=== PATIENT | female | born 1965 ===

== ENCOUNTER 2020-05-28 10:29 | Outpatient (REF) | payer MEDICAID, SELFPAY ==
[2020-05-28 15:15] LABS: SARS COV2 PCR INHOUSE NEGATIVE (Negative)
== END 2020-05-28 10:30 | disposition home or self-care (01) ==
LOC: HO.LAB 10:29
PROVIDERS: Visit Provider Internal Medicine
DX: Z20.822 Contact with and (suspected) exposure to COVID-19 (principal)
CPT/HCPCS: C9803; U0003

== ENCOUNTER 2020-08-19 15:00 | Outpatient (REF) | payer MEDICAID, SELFPAY ==
--- NOTE | ~2020-08-19 | MM_ITS ---
EXAMINATION: MM SCREENING DIGITAL BREAST TOMOSYNTHESIS, BILATERAL CLINICAL INFORMATION: Screening. Asymptomatic. The lifetime risk of breast cancer based on the Tyrer-Cuzick Model is 8%. COMPARISON: Mammography: 05/01/2019, 04/26/2018, 04/06/2017 TECHNIQUE: Digital breast tomosynthesis is performed in both the craniocaudal and mediolateral oblique views along with computer-aided detection (CAD). Synthesized 2D images are generated from the tomosynthesis. FINDINGS: There are scattered areas of fibroglandular density (ACR BI-RADS breast composition Category b). There are no significant masses, abnormal calcifications, or other abnormalities. Breast tissue composition borders on heterogeneously dense. Parenchymal pattern is similar to prior exams. There is no developing density. No significant changes. MM/MM tomosynthesis screening BI IMPRESSION: No mammographic evidence of malignancy. ASSESSMENT: BI-RADS 1: Negative RECOMMENDATION: Routine annual mammography screening. This patient's information was entered into a reminder system with a target due date for their next mammogram.
== END 2020-08-19 15:01 | disposition home or self-care (01) ==
LOC: HO.MAMMO 15:00
PROVIDERS: PCP Internal Medicine Geriatric Medicine; Visit Provider Internal Medicine Geriatric Medicine
DX: Z12.31 Encounter for screening mammogram for malignant neoplasm of breast (principal)
CPT/HCPCS: 77063; 77067

== ENCOUNTER 2021-08-23 13:53 | Outpatient (REF) | payer MEDICAID, SELFPAY ==
--- NOTE | ~2021-08-23 | MM_ITS ---
EXAMINATION: MM SCREENING DIGITAL BREAST TOMOSYNTHESIS, BILATERAL CLINICAL INFORMATION: Screening. Asymptomatic. The lifetime risk of breast cancer based on the Tyrer-Cuzick Model is 10%. COMPARISON: Mammography: 08/19/2020, 05/01/2019, 04/26/2018 TECHNIQUE: Digital breast tomosynthesis is performed in both the craniocaudal and mediolateral oblique views along with computer-aided detection (CAD). Synthesized 2D images are generated from the tomosynthesis. FINDINGS: There are scattered areas of fibroglandular density (ACR BI-RADS breast composition Category b). There are no significant masses, abnormal calcifications, or other abnormalities. Parenchymal pattern is similar to prior exams. The axilla and skin contours are unremarkable. MM/MM tomosynthesis screening BI IMPRESSION: No mammographic evidence of malignancy. ASSESSMENT: BI-RADS 1: Negative RECOMMENDATION: Routine annual mammography screening. This patient's information was entered into a reminder system with a target due date for their next mammogram.
== END 2021-08-23 13:54 | disposition home or self-care (01) ==
LOC: HO.MAMMO 13:53
PROVIDERS: PCP Nurse Practitioner Primary Care; Visit Provider Nurse Practitioner Primary Care
DX: Z12.31 Encounter for screening mammogram for malignant neoplasm of breast (principal)
CPT/HCPCS: 77063; 77067

== ENCOUNTER 2021-11-17 15:28 | Outpatient (REF) | payer MEDICAID, SELFPAY ==
--- NOTE | ~2021-11-17 | XR_ITS ---
EXAMINATION: XR ELBOW, RIGHT CLINICAL INFORMATION: Pain Bump on the surface of the skin COMPARISON: None TECHNIQUE: AP, lateral, and oblique views of the right elbow. FINDINGS: There is mild soft tissue swelling over the olecranon. The bones are intact. No fracture or joint effusion. Alignment is anatomic. Joint spaces are maintained. XR/XR elbow RT min 3V IMPRESSION: 1. No bony abnormality. 2. Possible mild olecranon bursitis.
== END 2021-11-17 15:29 | disposition home or self-care (01) ==
LOC: HO.XRAY 15:28
PROVIDERS: PCP Nurse Practitioner Primary Care; Visit Provider Emergency Medicine
DX: M25.521 Pain in right elbow (principal)
CPT/HCPCS: 73080

== ENCOUNTER 2022-09-27 13:39 | Outpatient (REF) | payer OTHER, SELFPAY ==
--- NOTE | ~2022-09-27 | MM_ITS ---
EXAMINATION: MM SCREENING DIGITAL BREAST TOMOSYNTHESIS, BILATERAL CLINICAL INFORMATION: Screening. Asymptomatic. The lifetime risk of breast cancer based on the Tyrer-Cuzick Model is 11.6%. COMPARISON: Mammography: This study is compared with prior exams dating back to 2019. TECHNIQUE: Digital breast tomosynthesis is performed in both the craniocaudal and mediolateral oblique views along with computer-aided detection (CAD). Synthesized 2D images are generated from the tomosynthesis. FINDINGS: There are scattered areas of fibroglandular density (ACR BI-RADS breast composition Category b). There are no significant masses, abnormal calcifications, or other abnormalities. MM/MM tomosynthesis screening BI IMPRESSION: No mammographic evidence of malignancy. ASSESSMENT: BI-RADS BI-RADS 1 - Negative RECOMMENDATION: Routine annual mammography screening. 1 year F/U This examination should not preclude the clinical evaluation of a suspicious palpable abnormality. This patient's information was entered into a reminder system with a target due date for their next mammogram.
== END 2022-09-27 13:40 | disposition home or self-care (01) ==
LOC: HO.MAMMO 13:39
PROVIDERS: PCP Nurse Practitioner Primary Care; Visit Provider Nurse Practitioner Primary Care
DX: Z12.31 Encounter for screening mammogram for malignant neoplasm of breast (principal)
CPT/HCPCS: 77063; 77067

== ENCOUNTER → 2022-09-27 13:45 | Outpatient (BNV) | payer MEDICAID, SELFPAY | PROVIDERS: PCP Nurse Practitioner Primary Care; Visit Provider Radiology Diagnostic Radiology | DX: Z12.31 Encounter for screening mammogram for malignant neoplasm of breast (principal) | CPT/HCPCS: 77063; 77067 ==

== ENCOUNTER 2023-06-23 12:58 | Outpatient (REF) | payer MEDICAID, SELFPAY ==
[2023-06-27 06:49] LABS: HPV mRNA E6/E7 rflx Not Detected (Not Detected)
== END 2023-06-23 12:59 | disposition home or self-care (01) ==
LOC: HO.LNP 12:58
PROVIDERS: Visit Provider Advanced Practice Midwife
DX: Z12.4 Encounter for screening for malignant neoplasm of cervix (principal)
CPT/HCPCS: 87624; 88142

== ENCOUNTER 2023-07-10 13:38 | Outpatient (REF) | payer MEDICAID, SELFPAY ==
--- NOTE | ~2023-07-10 | MM_ITS ---
EXAMINATION: MM DIAGNOSTIC DIGITAL BREAST TOMOSYNTHESIS, BILATERAL US BREAST LIMITED, BILATERAL MAMMOGRAPHY: CLINICAL INFORMATION: The patient presents for evaluation of a physician palpated lump in the 6:00 region of the left breast. COMPARISON: Mammography: This study is compared with prior breast imaging dating back to 2019. TECHNIQUE: Digital breast tomosynthesis is performed in both the craniocaudal and mediolateral oblique views along with computer-aided detection (CAD). Synthesized 2D images are generated from the tomosynthesis. CC and MLO spot compression of the 6:00 region of the left breast was performed. A full lateral view of the left breast was also performed. FINDINGS: There are scattered areas of fibroglandular density (ACR BI-RADS breast composition Category b). There are no significant masses, abnormal calcifications, or other abnormalities. There are no mammographic correlates with the area of palpable concern in the 6:00 region of the left breast. ULTRASOUND: CLINICAL INFORMATION: The patient presents for evaluation of a physician palpated lump in the 6:00 region of the left breast. COMPARISON: None TECHNIQUE: Targeted sonographic evaluation was performed using a high frequency linear transducer. The 7-12 o'clock area of the right breast was scanned further evaluate a right mammographic finding. The 4- 8:00 region of the left breast in the area of patient's symptomatology was also scanned. FINDINGS: RIGHT BREAST: No abnormalities of the 7-12 o'clock region of the right breast are present. This area was scanned to evaluate dense breast tissue in the upper outer quadrant. LEFT BREAST: No abnormalities of the for-8:00 region of the left breast are present. MM/MM tomosynthesis diagnostic BI IMPRESSION: No mammographic or sonographic signs of malignancy in either breast. No abnormalities in the patient's area of palpable concern in the 6:00 region of the right breast. OVERALL ASSESSMENT: Mammography: BI-RADS 1 - Negative Ultrasound: BI-RADS 1 - Negative RECOMMENDATION: 1. Patient should be managed based on the clinical impression. 2. Otherwise, routine annual screening mammography. Results were provided to the patient at time of visit by the technologist. This patient's information was entered into a reminder system with a target due date for their next mammogram.
== END 2023-07-10 13:39 | disposition home or self-care (01) ==
LOC: HO.MAMMO 13:38
PROVIDERS: PCP Advanced Practice Midwife; Visit Provider Advanced Practice Midwife
DX: N63.42 Unspecified lump in left breast, subareolar (principal)
CPT/HCPCS: 76642; 77062; 77066

== ENCOUNTER → 2023-07-10 14:00 | Outpatient (BNV) | payer MEDICAID, SELFPAY | PROVIDERS: PCP Advanced Practice Midwife; Visit Provider Radiology Diagnostic Radiology | DX: N63.25 Unspecified lump in the left breast, overlapping quadrants (principal) | CPT/HCPCS: 76642; 77062; 77066 ==

== ENCOUNTER 2023-08-15 11:06 | Outpatient (REF) | payer OTHER, SELFPAY ==
--- NOTE | ~2023-08-15 | XR_ITS ---
EXAMINATION: XR HIP, RIGHT CLINICAL INFORMATION: Atraumatic right hip pain COMPARISON: Left hip radiograph from 01/02/2019 TECHNIQUE: Single view the pelvis 2 views of the right hip FINDINGS: No acute visible fracture or dislocation. 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 Degenerative changes of the lumbosacral spine. Joint spaces and alignment are otherwise maintained. Soft tissues are unremarkable. Visualized portions of bowel are unremarkable. Pelvic phleboliths are noted. XR/XR hip RT w PEL1V IMPRESSION: 1. No acute visible fracture or dislocation. 2. 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
--- NOTE | ~2023-08-15 | US_ITS ---
EXAMINATION: US VENOUS ULTRASOUND WITH DOPPLER LOWER EXTREMITY, RIGHT CLINICAL INFORMATION: Right side pain evaluate for DVT COMPARISON: None available. TECHNIQUE: Ultrasound of the deep veins is performed from the hip to the calf with compression sonography and color and pulse Doppler assessment. Spectral analysis with color-flow imaging is performed. FINDINGS: There is normal venous compression and respiratory variation and augmented flow. The visualized common femoral vein, superficial femoral vein, profunda femoral vein, popliteal vein, and the trifurcation region shows no evidence of deep venous thrombosis. There is no significant popliteal fossa cyst. Contralateral common femoral vein is patent. If the patient's symptoms persist, followup ultrasound in 5 days 7 days might be of value to exclude proximal propagation from a non-visualized calf vein. US/US venous duplex LE RT IMPRESSION: No DVT demonstrated in the right lower extremity.
[2023-08-15 12:50] LABS: Uric Acid 2.9 mg/dL (2.4-5.7)
[2023-08-16 13:59] LABS: Lyme Abs Screen <0.90 index
== END 2023-08-15 11:07 | disposition home or self-care (01) ==
LOC: HO.US 11:06
PROVIDERS: PCP Advanced Practice Midwife; Visit Provider Emergency Medicine
DX: M79.651 Pain in right thigh (principal); M25.551 Pain in right hip
CPT/HCPCS: 36415; 73502; 84550; 86617; 86618; 93971

== ENCOUNTER 2023-08-22 09:40 | Outpatient (AMB) | payer OTHER, SELFPAY ==
--- NOTE | 2023-08-22 09:42 | MHC.OFFVIS ---
Vital Signs 08/22/23 09:53 Height 5 ft 2 in Weight 129 lb BMI 23.6 BP 129/68 Blood Pressure Location Lt brachial Position Sitting Pulse 71 Intake Visit Reasons: Sub Areolar Mass Left Breast Intake Note: Patient is seen in office for evaluation and treatment of sub areolar mass of the left breast. 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 This was noted on self examination and confirmed on physical examination. The patient denies a previous history of breast problems or breast surgery. Subsequent workup with mammogram and ultrasound was negative for any suspicious changes in either study. Her family history is significant for a maternal aunt with breast cancer. She is and denies breast-feeding her children. FOR[facility]LY [facility] Surgical History History of appendectomy Social History Alcohol intake: never Patient Tobacco Use Status: Never used Tobacco Female Reproductive History Menstrual Age of Menarche: 13 Age of menopause: 53 Total pregnancies: 3 Number of Living Children: 2 Ab spontaneous: 1 Review of Systems Const All systems reviewed & are unremarkable except as noted in HPI and below Denies chills, Denies fever(s), Denies headache(s), Denies poor appetite and Denies weakness ENT Denies headache(s) Card Denies chest pain, Denies irregular heart rhythm, Denies palpitations and Denies dyspnea Resp Denies cough, Denies excessive phlegm production and Denies dyspnea GI Denies abdominal pain, Denies bloating, Denies change in bowel habits, Denies constipation, Denies heartburn, Denies diarrhea, Denies nausea and Denies vomiting Denies urinary frequency and Denies nipple discharge Musc Denies back pain, Denies muscle weakness and Denies numbness Skin/Breast Denies breast skin changes, Denies breast pain, Reports breast mass, Denies changing lesions, Denies nipple discharge and Denies unusual bruising Neuro Denies headache(s), Denies numbness, Denies paresthesias and Denies weakness Psych Denies anxiety and Denies depression Endo Denies palpitations Neeraj/Lymph Denies lymphadenopathy Physical Exam Vital Signs: Last Vital Signs Pulse 71 08/22/23 09:53 BP 129/68 08/22/23 09:53 BMI result Body Mass Index 23.6 Const General: cooperative and no acute distress Nutritional Appearance: well nourished Orientation/consciousness: patient oriented x3 Limitations: no limitations HEENT Head: Yes normocephalic and Yes atraumatic Ears: hearing grossly normal bilaterally Chest Other: Left breast: No skin change, no nipple retraction, no nipple discharge, palpable mass located in the 04:00 o'clock location just below the areola, mobile within the tissue (see below), no enlarged lymph nodes. Right breast: No skin change, no nipple retraction, no nipple discharge, no palpable mass, no enlarged lymph nodes Chest/axillae images: 1. Palpable mass left breast Resp Effort & Inspection: normal respiratory effort, no audible wheezes, no cough and no respiratory distress Cardio Jugular venous distension: no JVD GI Inspection: Yes normal to inspection Skin Other: Warm, dry, no rash Neuro General: patient oriented x3 Extrem General: Yes no clubbing, cyanosis or edema Assessment & Plan Assessment & Plan (1) Breast mass, left: Code(s): N63.20 - Unspecified lump in the left breast, unspecified quadrant Category: Medical Qualifiers: Breast mass location: lower outer quadrant Qualified Code(s): N63.23 - Unspecified lump in the left breast, lower outer quadrant Plan 57-year-old year old female patient presenting with a palpable mass noted on self examination. Lump was not identified by mammogram or ultrasound. Examination does confirm a palpable mass measuring approximately 1 cm in the lower inner quadrant (04:00 o'clock location). We discussed observation versus excisional biopsy. I recommended an excision this is a safest option and after discussion of the procedure, risks, and alternatives, she consents to a left breast lumpectomy. Be performed as a short-stay surgery. Coding Level of Care Code New Pt Level 4 (84811) Diagnoses Mass of lower outer quadrant of left breast N63.23 Breast mass location: lower outer quadrant
[2023-08-22 09:53] VITALS: BP 129/68; PULSE 71; BMI 23.6
== END 2023-08-22 10:06 | disposition home or self-care (01) ==
PROVIDERS: PCP Advanced Practice Midwife; Visit Provider Surgery
DX: N63.23 Unspecified lump in the left breast, lower outer quadrant (principal)
CPT/HCPCS: 99204

== ENCOUNTER → 2023-08-22 09:40 | Outpatient (BNVA) | payer OTHER, SELFPAY | PROVIDERS: PCP Advanced Practice Midwife; Visit Provider Surgery | DX: N63.23 Unspecified lump in the left breast, lower outer quadrant (principal) | CPT/HCPCS: 99202 ==

== ENCOUNTER 2023-09-11 08:45 | Outpatient (AMB) | payer OTHER, SELFPAY ==
--- NOTE | 2023-09-11 09:02 | MHC.OFFVIS ---
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 Marketing Information Analyst Required: No Accompanied by: Self / Same As Patient Allergies No Known Allergies Allergy (Verified 08/22/23 09:50) Medication List - Last Reconciled 09/11/23 by Aleksandr De Leon MD albuterol sulfate 90 mcg/actuation (Ventolin HFA) 2 puffs inhalation QID PRN multivitamin 1 tab PO DAILY HPI Comments Details: Pleasant 57-year-old female who has been referred to us for cardiac murmur. She has a breast mass and is seeing surgery where a murmur was heard and she was referred to us. She is due to get excision of the breast mass next week. She does not have any medical history or family history of cardiovascular disease. She is active and does exercise 3 times a week without any exertional chest discomfort shortness of breath. Never had syncope in the past. No history of thyroid disease or anemia in the past. COUNTS INCLUDE 234 BEDS AT THE [facility] Medical History (Updated 09/11/23 @ 09:21 by Aleksandr De Leon MD) Arthritis Hip pain Asthma Murmur Surgical History H/O colonoscopy History of appendectomy Family History Maternal Aunt Breast cancer Social History Are you a primary daytime caregiver to a significant other at home: No Do you presently have visiting nurse or other home services: No Alcohol intake: never Patient Tobacco Use Status: Never used Tobacco Female Reproductive History Menstrual Age of Menarche: 13 Review of Systems Const Denies chills, Denies fatigue, Denies fever(s), Denies frequent falls, Denies weakness, Denies weight gain and Denies weight loss ENT Denies dizziness Card Denies chest pain, Denies leg edema, Denies lightheadedness, Denies palpitations, Denies dyspnea, Denies dyspnea on exertion and Denies orthopnea Resp Denies cough, Denies dyspnea and Denies dyspnea on exertion GI Denies bloating and Denies change in bowel habits Musc Denies muscle weakness, Denies numbness and Denies tingling Neuro Denies dizziness, Denies frequent falls, Denies numbness, Denies tingling and Denies weakness Endo Denies fatigue and Denies palpitations Physical Exam Vital Signs: Last Vital Signs Pulse 64 09/11/23 09:03 BP 110/70 09/11/23 09:03 BMI result Body Mass Index 23.4 GENERAL APPEARANCE: in no acute distress, pleasant. NECK: no carotid bruit, no jugular venous distention. SKIN: no suspicious lesions, warm and dry. HEART: Mid systolic grade I/V1 murmur, regular rate and rhythm. LUNGS: clear to auscultation bilaterally. ABDOMEN: soft, nontender. EXTREMITIES: no edema. PERIPHERAL PULSES: equal. NEUROLOGIC: No gross deficits, AAO X 3 Office Procedures EKG Details: Normal sinus rhythm 64 beats per minute normal axis, normal ECG, QTC 414 milliseconds. [id number], Complete Assessment & Plan Assessment & Plan (1) Murmur: Code(s): R01.1 - Cardiac murmur, unspecified Category: Medical Plan Pleasant 57 year female who is here for cardiac murmur. By exam she has an innocent murmur. Clinically, she has no symptoms. She is active and has no exertional complaints. Can proceed with breast lump excision with low risk of cardiovascular complications. Can have elective echocardiography performed in the coming weeks. Follow-up in 6 months. Thank you for allowing me to participate in the care of your patient. Please feel free to contact me if you have any questions. Orders: Orders CA echo transthoracic complete Today R01.1 - Cardiac murmur, unspecified Coding Level of Care Code New Pt Level 4 (74892) Diagnoses Murmur R01.1 CPT Codes EKG - CPT: 49446-[id number], Complete ([id number])
[2023-09-11 09:03] VITALS: BP 110/70; PULSE 64; BMI 23.4
== END 2023-09-11 09:31 | disposition home or self-care (01) ==
PROVIDERS: PCP Advanced Practice Midwife; Visit Provider Internal Medicine Cardiovascular Disease
DX: R01.1 Cardiac murmur, unspecified (principal)
CPT/HCPCS: 93010; 99204

== ENCOUNTER → 2023-09-11 08:45 | Outpatient (BNVA) | payer OTHER, SELFPAY | PROVIDERS: PCP Advanced Practice Midwife; Visit Provider Internal Medicine Cardiovascular Disease | DX: R01.1 Cardiac murmur, unspecified (principal) | CPT/HCPCS: 93005; 99202 ==

== ENCOUNTER 2023-09-18 08:06 | Day surgery (SDC) | payer OTHER, SELFPAY ==
[2023-09-08 11:02] VITALS: BMI 22.9
[2023-09-18 08:24] VITALS: BP 129/65; PULSE 61; RESP 16; TEMP 36.1; O2SAT 99
[2023-09-18] MEDS: Lactated Ringers 1,000 ML 100 ML IVCONT (08:25)
--- NOTE | 2023-09-18 09:27 | HO.ANESPROP2 ---
[facility] Active Problems Active Problems: All Active Problems Murmur (Acute) Breast mass, left (Acute) Past Medical History Medical History Arthritis Hip pain Asthma Murmur Functional capacity: independent ambulation Patient : No Family History Family History Maternal Aunt Breast cancer Family history of problems with anesthesia: No Surgical History Surgical History H/O colonoscopy History of appendectomy History of Problems with Anesthesia: No Social History Social History Are you a primary childcare center director to a significant other at home: No Do you presently have visiting nurse or other home services: No Alcohol intake: never Patient Tobacco Use Status: Never used Tobacco Use of substances other than those prescribed or required for medical reasons: No Have you been hit, kicked, punched, or otherwise hurt by someone within the past year? If so, by whom?: No Are you DNR?: No Advance Directives: No Advance Directives Information Provided: Yes Advance Directives on File: No Recently lost weight without trying: No Nutrition Risks: No Nutritional Risk Patient : No : No Poor oral hygiene: No Meds Allergies Allergy/AdvReac Type Severity Reaction Status Date / Time No Known Allergies Allergy Verified 09/18/23 08:16 Active Medications: Current Medications Lactated Ringer's (Lr) 1,000 mls @ 100 mls/hr IVCONT .Q10H MONICA Last Admin: 09/18/23 08:25 Dose: 100 mls/hr Home Medications ?Medication ?Instructions ?Recorded ?Confirmed ?Last Taken ?Type albuterol sulfate 90 mcg/actuation 2 puff inhalation QID PRN 09/08/23 09/11/23 Unknown History aerosol inhaler (Ventolin HFA) Shortness Of Breath Or Wheezing multivitamin 1 tab PO DAILY 09/08/23 09/11/23 Unknown History Exam Height,Weight and Vital Signs: Height 5 ft 2 in Weight 56.699 kg Last Vital Signs Temp 97.0 F 09/18/23 08:24 Pulse 61 09/18/23 08:24 Resp 16 09/18/23 08:24 BP 129/65 09/18/23 08:24 Pulse Ox 99 09/18/23 08:24 O2 Del Method Room Air 09/18/23 08:24 Airway Mallampati Class: II TM Dist: >3cm Neck ROM: Full Heart: RRR Lungs: CTA Assessment and Plan Assessment Anesthesia Assessment: Anesthesia Plan Discussed Final Anesthetic Review Family History of Problems with Anesthesia: No History of Problems with Anesthesia: No NPO: Yes ASA Class: II Final Preanesthetic Review: Meds/Allgs Chart Reviewed, Consent Obtained/Reviewed and Anes Risks/Benef Reviewed Patient Risk: Low Procedure Risk: Low Anesthetic Plan Anesthetic Plan: GA Disposition: Standard PACU
--- NOTE | 2023-09-18 09:36 | MHC.SHP ---
Pre-Procedural Eval Section A - 24 Hr Update-Section A only Date of Service: 09/18/23 The patient is an INPATIENT: No Changes since office visit: Yes Patient answered all questions; No Cold of Flu in the past 2 weeks, No New Medical Problems and No Changes in Medication The patient has been examined within 24 hours of the surgical procedure. The History & Physical has been completed within 30 days and I have reviewed it.: Yes Section B - Complete if H&P > 30 days Chief Complaint: Unspecified lump in the left breast, lower outer q Allergies: Allergies Allergy/AdvReac Type Severity Reaction Status Date / Time No Known Allergies Allergy Verified 09/18/23 08:16 Plan Diagnosis/Plan: Unchanged I have reviewed the history and physical and performed a pertinent physical examination on my patient. No changes have occurred unless specified. Time Spent With Patient Time: Total time managing care of this patient today ____ minutes.
--- NOTE | 2023-09-18 10:44 | W.PM.OPN ---
Operative Note Operative Note Date of Service: 09/18/23 Narrative: Preoperative diagnosis: Left breast lump Postoperative diagnosis: Left breast lump Procedure: Left breast lumpectomy Surgeon: Rashawn Flores MD Casing Material Weigher: May Lawrence PA-C Anesthesia: General LMA Indications for procedure: 58-year-old female patient presenting with a palpable lump in the left breast at the 05:00 o'clock location just below the nipple-areolar complex. Workup with mammogram and ultrasound were negative for any suspicious findings. She presents today for excision of the palpable lump. Operative findings: 1.5 cm palpable lump of the left breast Specimen: Left breast lump Estimated blood loss: 2 cc Complications: None Procedure details: Patient was brought to the OR and placed in a supine position. After administering general anesthesia the patient's left breast was prepped with ChloraPrep and draped in a sterile fashion. A surgical time-out was called the consent confirmed. Patient received preoperative antibiotics and Venodyne boots were in place. Local anesthesia consisting of 0.5% Sensorcaine was then infiltrated in a curvilinear fashion around the areola. A curvilinear incision was then made with a scalpel from the 7-5 o'clock location and carried out through subcutaneous tissue. Superior and inferior skin flaps were then created. Allis clamp was then used to grasp the palpable mass. This was then excised using electrocautery. The specimen was sent to pathology for further examination. Wounds were then checked for hemostasis with the electrocautery. Wounds were then irrigated with saline solution and suctioned dry. Deep breast tissue and dermis were then reapproximated using interrupted 3-0 Polysorb sutures. Skin was closed using a running subcuticular 4-0 Polysorb suture. Steri-Strips, 2 x 2 gauze and Tegaderm were then applied. The patient tolerated the procedure well. Sponge, instrument, and needle counts reported as correct. The patient was transferred to PACU in stable condition.
[2023-09-18 11:00] VITALS: BP 111/62; PULSE 57; RESP 16; TEMP 36.1; O2SAT 99
[2023-09-18 11:05] VITALS: BP 120/66; PULSE 55; RESP 16; O2SAT 98
[2023-09-18 11:10] VITALS: BP 130/67; PULSE 52; RESP 16; O2SAT 98
[2023-09-18 11:15] VITALS: BP 129/65; PULSE 54; RESP 16; O2SAT 99
[2023-09-18 11:30] VITALS: BP 134/56; PULSE 56; RESP 16; TEMP 36.3; O2SAT 99
--- NOTE | 2023-09-18 17:39 | HO.POSTANES ---
Post Anesthesia Evaluation Post Anesthesia Evaluation Date of Service: 09/18/23 Vital Signs: Vital Signs Temp Pulse Resp BP Pulse Ox O2 Del Method 09/18/23 11:30 97.3 F 56 16 134/56 L 99 Room Air 09/18/23 11:15 54 16 129/65 99 Room Air 09/18/23 11:10 52 16 130/67 98 Room Air 09/18/23 11:05 55 16 120/66 98 Room Air 09/18/23 11:00 97 F 57 16 111/62 99 Room Air 09/18/23 08:24 97.0 F 61 16 129/65 99 Room Air Anesthesia: General LMA Mental Status: Awake Pain Control: Satisfactory Nausea/Vomiting: None Hydration: Adequate Anesthesia-Related Issues: No Anes. Related Issues
== END 2023-09-18 12:31 | disposition home or self-care (01) ==
PROVIDERS: PCP Advanced Practice Midwife; Visit Provider Surgery
PROC: (CPT 19301; principal; 2023-09-18 10:20)
DX: N63.23 Unspecified lump in the left breast, lower outer quadrant (principal); N60.82 Other benign mammary dysplasias of left breast; N60.22 Fibroadenosis of left breast; R01.1 Cardiac murmur, unspecified; J45.909 Unspecified asthma, uncomplicated; M19.90 Unspecified osteoarthritis, unspecified site; Z79.899 Other long term (current) drug therapy
CPT/HCPCS: 19301; 88305; 88307; J0690; J1100; J2250; J2405; J2704; J2795; J3010

== ENCOUNTER → 2023-09-18 08:06 | Outpatient (BNV) | payer OTHER, SELFPAY | PROVIDERS: PCP Advanced Practice Midwife; Visit Provider Surgery | DX: N63.23 Unspecified lump in the left breast, lower outer quadrant (principal) | CPT/HCPCS: 19301 ==

== ENCOUNTER 2023-09-21 14:48 | Outpatient (AMB) | payer OTHER, SELFPAY ==
--- NOTE | 2023-09-21 15:00 | MHC.OFFVIS ---
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 Patient reports her pain has been present for about 2 months. Denies injury. She was seen by her PCP who ordered xrays and referred to orthopedics. Currently her pain has improved however she continues to pain that fluctuates in intensity. States with certain movements of leg her pain will radiate down her leg. No previous tx. Finds very little relief with ibuprofen and topical cream. 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 She states that she has been experiencing pain for almost two months. She denies injury. She was seen by her PCP who ordered x-rays and referred to orthopedics. She claims that currently her pain has improved, however, she continues to have pain that changes in intensity. She states that certain movements makes her leg pain worse and that radiates down her leg. She denies any previous treatment. She finds mild relief with ibuprofen and topical cream. She denies receiving any physical therapy. 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 Female Reproductive History Menstrual Age of Menarche: 13 Review of Systems Const All systems reviewed & are unremarkable except as noted in HPI and below Physical Exam Vital Signs: BMI result Body Mass Index 22.9 Const General: cooperative, healthy appearing, comfortable and no acute distress Orientation/consciousness: patient oriented x3 Neck Neck: Yes normal visual inspection and Yes no JVD Chest Chest palpation & inspection: normal inspection of the chest Resp Effort & Inspection: normal respiratory effort Auscultation: clear to auscultation bilaterally, crackles (no), rales (no), rhonchi (no) and wheezes (no) Cardio Jugular venous distension: no JVD Rate: regular rate Rhythm: regular rhythm Heart sounds: S1 normal heart sound present, S2 normal heart sound present, Murmur heart sound present (no) and Rub heart sound present (no) Peripheral pulses: Peripheral pulses 2+ throughout Neuro General: patient oriented x3 Extrem Other: Right hip: Normal to inspection, ambulates with a slight limp. Has mild discomfort with internal and extension rotation of hip. No significant stiffness. Mild discomfort with hip flexion against resistance. NVI. General: Yes normal to inspection, Yes no pedal edema and Yes no calf tenderness Psych Appearance: grossly normal Mental Status: mental status grossly normal Speech and movement: Normal speech and movement present Results Reviewed Results Reviewed: XR hip RT w PEL1V IMPRESSION: 1. No acute visible fracture or dislocation. 2. 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 Assessment & Plan Assessment & Plan (1) Tendonitis of right hip flexor: Code(s): M76.891 - Other specified enthesopathies of right lower limb, excluding foot Category: Medical Plan We discussed options which include PT, NSAIDs and injections. The patient will defer on the injection today and proceed with PT and NSAIDs. If symptoms persist, she will contact me for an injection, otherwise, PRN. Orders: Orders PT Evaluation and Treatment 09/21/23 M76.891 - Other specified enthesopathies of right lower limb, excluding foot Medications: New celecoxib (Celebrex) 200 mg PO BID 60 caps 3RF 30 days Patient Instructions: Scribed for Svitlana Mendoza PA-C, by fernando Moore scribe, on 09/21/2023 at 3:00 PM EST. I, Svitlana Mendoza PA-C, have personally reviewed and agree with the information entered by the scribe. Coding Level of Care Code New Pt Level 3 (30490) Diagnoses Tendonitis of right hip flexor M76.891
[2023-09-21 15:06] VITALS: BMI 22.9
== END 2023-09-21 16:08 | disposition home or self-care (01) ==
PROVIDERS: PCP Advanced Practice Midwife; Visit Provider Physician Assistant
DX: M76.891 Other specified enthesopathies of right lower limb, excluding foot (principal)
CPT/HCPCS: 99204

== ENCOUNTER → 2023-09-21 14:48 | Outpatient (BNVA) | payer OTHER, SELFPAY | PROVIDERS: PCP Advanced Practice Midwife; Visit Provider Physician Assistant | DX: M76.891 Other specified enthesopathies of right lower limb, excluding foot (principal) | CPT/HCPCS: 99202 ==

== ENCOUNTER → 2023-09-25 13:49 | Outpatient (REF) | payer OTHER, SELFPAY ==
--- NOTE | 2023-09-25 13:52 | CA_ITS ---
Transthoracic Echocardiogram Patient (Last, First, Middle): Michela Leger, Gender: Female Date of : 1965 Age: 58 Procedure Date: 09/25/2023 Procedure Type: Transthoracic Echocardiogram Location: OP Height: 157.48 cm Weight: 56.7 kg BSA: 1.57 m2 Heart Rate: bpm BP: 120 / 80 mmHg Tire Worker: NAA Referring MD: Aleksandr De Leon MD Symptoms: R01.1 - Cardiac murmur, unspecified Study Quality: Fair Conclusions: - Normal left ventricular size, thickness, systolic function, and wall motion. The visually estimated ejection fraction is between 55-60%. Diastolic function is normal for age. Normal global longitudinal strain. - Normal right ventricular cavity size and systolic function. Findings Left Ventricle Normal left ventricular size, thickness, systolic function, and wall motion. The visually estimated ejection fraction is between 55-60%. Diastolic function is normal for age. Normal global longitudinal strain. Right Ventricle Normal right ventricular cavity size and systolic function. Atria The left atrium is likely dilated. The right atrium is normal in size. Aortic Valve Normal aortic valve structure and function. There is no aortic valve stenosis. There is no aortic valve regurgitation. Mitral Valve Normal mitral valve structure and function. There is trace mitral valve regurgitation. There is no mitral valve stenosis. Pulmonic Valve The pulmonic valve is normal. There is trace pulmonic valve regurgitation. Tricuspid Valve Normal tricuspid valve structure. There is trace tricuspid valve regurgitation. Normal right atrial pressure. There is no evidence of pulmonary hypertension. Great Vessels All visible segments of the aorta are normal in size. The visualized portions of the pulmonary artery and branches are normal. Venous The inferior vena cava is normal in size and collapses greater than 50% with inspiration. Pericardium/Pleural There is no evidence of pericardial effusion. Prior Study Comparison No prior study available for comparison. Measurements 2D Linear Measurements IVSd: 0.63 0.6-0.9/0.6-1.0 cm LVIDd: 4.34 3.9-5.3/4.2-5.9 cm LVIDd Index: 2.76 2.4-3.2/2.2-3.1 cm/m2 LVIDs: 3.04 2.0-3.6 cm LVPWd: 0.66 0.7-1.1 cm LA Diam: 2.90 2.7-3.8/3.0-4.0 cm LAIDs Index: 1.85 1.5-2.3 cm/m2 LV Mass: 100.77 67-162/88-224 g LV Mass Index: 64.19 43-95/49-115 g/m2 LVOT Diam: 1.90 3.0+(-)1.3 cm 2D Systolic Function EF 4C: 61.10 >55% EF 2C: 66.70 >55% EF BiP: 64.00 >55% Mitral Valve MV Pk E: 0.87 MV PK A: 0.72 MV Decel Time: 224.00 E/A: 1.20 E'Lateral: 11.00 E'Medial: 7.94 E/E' Med: 11.00 E/E' Lat: 7.90 PHT: 66.00 MVA PHT: 3.33 Decel Lehigh: 3.90 Aortic Valve AoV Pk Cole: 1.68 AoV Mn Cole: 1.09 AoV VTI: 0.42 AoV Pk Grad: 11.00 Aov Mn Grad: 6.00 BRIT Cont.VTI: 1.89 LVOT LVOT Pk Cole: 1.12 LVOT Mn Cole: 0.77 LVOT VTI: 0.28 LVOT Pk Grad: 5.00 LVOT Mn Grad: 3.00 LVOT Diam: 1.90 LVOT Area: 2.84 Diastolic Function MV Pk E: 0.87 MV Pk A: 0.72 E/A: 1.20 E'Medial: 7.94 E/E' Med: 11.00 E' Laterial: 11.00 E/E' Lat: 7.90 Right Ventricle TAPSE (mm): 25.70 TVS' Cole: 11.40 Tricuspid Valve TR Pk Cole: 2.31 TR Pk Grad: 21.00 RA Press: 8.00 RVSP: 29.00 Great Vessels Aorta Sinus of Valsalva: 3.07 2.0-3.5 cm Ao Asc: 2.60 2.1-3.4 cm Ao Arch: 2.70 Updated in Other Vendor System with Status of Final Aleksandr De Leon MD electronically signed on 09/26/2023 2:29:40 PM with status of Final
== END ==
LOC: HO.CARD 13:49
PROVIDERS: PCP Advanced Practice Midwife; Visit Provider Emergency Medicine
DX: R01.1 Cardiac murmur, unspecified (principal)
CPT/HCPCS: 93306

== ENCOUNTER → 2023-09-25 13:52 | Outpatient (BNV) | payer OTHER, SELFPAY | PROVIDERS: PCP Advanced Practice Midwife; Visit Provider Internal Medicine Cardiovascular Disease | DX: R01.1 Cardiac murmur, unspecified (principal) | CPT/HCPCS: 93306; 93356 ==

== ENCOUNTER 2023-09-28 12:35 | Outpatient (AMB) | payer OTHER, SELFPAY ==
--- NOTE | 2023-09-28 12:54 | MHC.OFFVIS ---
Vital Signs 09/28/23 12:55 Height 5 ft 2 in Weight 128 lb 11.999 oz BMI 23.5 BP 130/60 Blood Pressure Location Lt brachial Position Sitting Pulse 60 Intake Visit Reasons: S/P Left breast lumpectomy Intake Note: Patient is seen in office for post op assessment post left breast lumpectomy. Pt c/o: no concerns or changes, denies any signs of infection Op:09/18/23 Video Control Operator Required: No Accompanied by: Grand Child Allergies No Known Allergies Allergy (Verified 09/28/23 12:55) Medication List - Last Reconciled 09/28/23 by Rashawn Flores MD albuterol sulfate 90 mcg/actuation (Ventolin HFA) 2 puffs inhalation QID PRN celecoxib (Celebrex) 200 mg PO BID 30 days multivitamin 1 tab PO DAILY HPI Comments Details: 58-year-old female patient returning 1 week following excision of a left breast lump on 09/18/2023. She tolerated the procedure well and denies any ongoing breast symptoms. She reports the Steri-Strips are still intact. Pathology revealed benign breast tissue with stromal fibrosis, fibrocystic changes, apocrine metaplasia but no atypia or malignancy identified. 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 Assessment & Plan Assessment & Plan (1) Breast mass, left: Code(s): N63.20 - Unspecified lump in the left breast, unspecified quadrant Category: Medical Qualifiers: Breast mass location: lower outer quadrant Qualified Code(s): N63.23 - Unspecified lump in the left breast, lower outer quadrant Plan 58-year-old female patient status post left breast lumpectomy for palpable left breast mass. Subsequent pathology revealed benign breast tissue with no evidence of atypia or malignancy. Patient was informed of the pathology results. She tolerated the procedure well and her wounds are healing appropriately. She should follow up as needed. Coding Level of Care Code Global (72169) Diagnoses Mass of lower outer quadrant of left breast N63.23 Breast mass location: lower outer quadrant
[2023-09-28 12:55] VITALS: BP 130/60; PULSE 60; BMI 23.5
== END 2023-09-28 12:59 | disposition home or self-care (01) ==
PROVIDERS: PCP Advanced Practice Midwife; Visit Provider Surgery
DX: N63.23 Unspecified lump in the left breast, lower outer quadrant (principal)
CPT/HCPCS: 99024

== ENCOUNTER → 2023-09-28 12:35 | Outpatient (BNVA) | payer OTHER, SELFPAY | PROVIDERS: PCP Advanced Practice Midwife; Visit Provider Surgery | DX: N63.23 Unspecified lump in the left breast, lower outer quadrant (principal); N60.32 Fibrosclerosis of left breast; N60.82 Other benign mammary dysplasias of left breast | CPT/HCPCS: 99212 ==

== ENCOUNTER 2023-12-06 12:29 | Outpatient (REF) | payer OTHER, SELFPAY | END 2023-12-06 12:30 | disposition home or self-care (01) | LOC: HO.MAMMO 12:29 | PROVIDERS: PCP Nurse Practitioner Primary Care; Visit Provider Nurse Practitioner Primary Care | DX: Z13.89 Encounter for screening for other disorder (principal) ==

== ENCOUNTER 2024-05-29 09:19 | Outpatient (AMB) | payer OTHER, SELFPAY ==
--- NOTE | 2024-05-29 09:22 | A.OFFVIS_ITS ---
Vital Signs 05/29/24 09:24 Height 5 ft 2 in Weight 136 lb 3.931 oz BMI 24.9 BP 130/62 Blood Pressure Location Lt brachial Position Sitting Pulse 60 Pulse Source Pulse Oximeter Intake Visit Reasons: 6 mth f/up Intake Note: 6 mth f/up Underground Utility Locator Required: No Accompanied by: Self / Same As Patient Allergies No Known Allergies Allergy (Verified 09/28/23 12:55) Medication List - Last Reconciled 05/29/24 by Aleksandr De Leon MD albuterol sulfate 90 mcg/actuation (Ventolin HFA) 2 puffs inhalation QID PRN celecoxib (Celebrex) 200 mg PO BID 30 days multivitamin 1 tab PO DAILY HPI Comments Details: Pleasant 58-year-old female who has been referred to us for cardiac murmur. She has a breast mass and is seeing surgery where a murmur was heard and she was referred to us. She is due to get excision of the breast mass next week. She does not have any medical history or family history of cardiovascular disease. She is active and does exercise 3 times a week without any exertional chest discomfort shortness of breath. Never had syncope in the past. No history of thyroid disease or anemia in the past. 05/29/2024: She is here for follow-up she underwent breast lumpectomy which was a benign mass. She is denying any symptoms. Echocardiography previously was normal. 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 Female Reproductive History Menstrual Age of Menarche: 13 Review of Systems Const Denies chills, Denies fatigue, Denies fever(s), Denies frequent falls, Denies weakness, Denies weight gain and Denies weight loss ENT Denies dizziness Card Denies chest pain, Denies leg edema, Denies lightheadedness, Denies palpitations, Denies dyspnea and Denies dyspnea on exertion Resp Denies cough, Denies dyspnea and Denies dyspnea on exertion GI Denies hematochezia Musc Denies abnormal gait, Denies muscle weakness, Denies numbness, Denies radiating pain into limb and Denies tingling Neuro Denies abnormal gait, Denies dizziness, Denies frequent falls, Denies numbness, Denies tingling and Denies weakness Endo Denies fatigue and Denies palpitations Physical Exam Vital Signs: Last Vital Signs Pulse 60 05/29/24 09:24 BP 130/62 05/29/24 09:24 BMI result Body Mass Index 24.9 GENERAL APPEARANCE: in no acute distress, pleasant. NECK: no carotid bruit, no jugular venous distention. SKIN: no suspicious lesions, warm and dry. HEART: Mid systolic grade I/V1 murmur, regular rate and rhythm. LUNGS: clear to auscultation bilaterally. ABDOMEN: soft, nontender. EXTREMITIES: no edema. PERIPHERAL PULSES: equal. NEUROLOGIC: No gross deficits, AAO X 3 Assessment & Plan Assessment & Plan (1) Murmur: Code(s): R01.1 - Cardiac murmur, unspecified Category: Medical Plan Pleasant 58-year-old female who is here for cardiac murmur. By exam she has an innocent murmur. Clinically, she has no symptoms. She is active and has no exertional complaints. Echocardiography has confirmed that she does not have any significant valvular pathology. She has no symptoms currently. I have advised her to see us as needed from here onwards. Thank you for allowing me to participate in the care of your patient. Please feel free to contact me if you have any questions. Coding Level of Care Code Est Pt Level 3 (72538) Diagnoses Murmur R01.1
[2024-05-29 09:24] VITALS: BP 130/62; PULSE 60; BMI 24.9
--- OUTSIDE RECORDS SUMMARY | 2024-05-29 10:20 | XMS_ITS | Clinical Summary ---
Author Organization [facility] it Address [address] [place] [address] Care Team Providers Care Pcb Designer Name Role Phone Eden Barreto MD Primary Care Provider [phone] Surgical History Surgery Date Site/Laterality Comments TUBAL LIGATION PROCEDURE: HISTORICAL TUBAL LIGATION APPENDECTOMY 11/2019 PROCEDURE: HISTORICAL APPENDECTOMY Medical History Medical History Date Comments Tumors of body of uterus, an tepartum condition or complication 12/02/2004 DX:Tumors of body of uterus, antepartum condition or complication Family History Medical History Relation Name Comments Breast cancer Aunt 1 mother side Diabetes Aunt 1 mother side Hyperlipidemia Aunt 2 Hypertension Aunt 3 Diabetes Father Hypertension Father Diabetes Mother Hypertension Mother Relation Name Status Comments Aunt 1 mother side Alive Aunt 2 Aunt 3 Father Alive Mother Alive Social History Tobacco Use Types Packs/Day Years Used Date Smoking Tobacco: Never Smokeless Tobacco: Never Alcohol Use Standard Drinks/Week Comments No 0 (1 standard drink = 0.6 oz pur e alcohol) Comments Unknown Sex and Gender Information Value Date Recorded Sex Assigned at Not on file Legal Sex Female 12:47 PM EST Gender Identity Not on file Sexual Orientation Not on file Obstetrics History Last Filed Vital Signs Vital Sign Reading Time Taken Comments Blood Pressure - - Pulse - - Temperature - - Respiratory Rate - - Oxygen Saturation - - Inhaled Oxygen Concentration - - Weight 56.7 kg (125 lb) 04/24/2023 3:13 PM EST Height 157.5 cm (5' 2 ) 04/24/2023 3:13 PM EST Body Mass Index 22.86 04/24/2023 3:13 PM EST Plan of Treatment Health Maintenance Due Date Last Done Comments Breast Cancer Screening 1965 DTaP,Tdap,and Td Vaccines (1 - Tdap) 09/14/1982 Pneumococcal Vaccine: 50+ Ye ars (1 of 1 - PCV) 09/14/2013 Zoster Vaccines (1 of 2) 09/14/2013 Cervical Cancer Screening: P ap Smear 11/21/2021 11/21/2018 Colorectal Cancer Screening: Colonoscopy 01/25/2022 Depression Screening 01/25/2022 HIV Screening 01/25/2022 Hepatitis C Screening 01/25/2022 Social Influencers of Health Screening 01/25/2022 COVID-19 Vaccine ( - 2023-2 5 season) 2023 Influenza Vaccine (Season Ended) 2024 RSV Immunization Adult Patie nts (1 - 1-dose 75+ series) 09/14/2038 HIB Vaccines Aged Out No longer eligi ble based on patient's age to complete this topic HPV Vaccines Aged Out No longer eligi ble based on patient's age to complete this topic Hepatitis A Vaccines Aged Out No long er eligible based on patient's age to complete this topic Hepatitis B Vaccines Aged Out No long er eligible based on patient's age to complete this topic IPV Vaccines Aged Out No longer eligi ble based on patient's age to complete this topic MMR Vaccines Aged Out No longer eligi ble based on patient's age to complete this topic Meningococcal ACWY Vaccine Aged Out N o longer eligible based on patient's age to complete this topic Meningococcal B Vacine Aged Out No lo nger eligible based on patient's age to complete this topic Pneumococcal Vaccine: Pediat rics (0 to 5 Years) and At-Risk Patients (6 to 64 Years) Aged Out No longer eligi ble based on patient's age to complete this topic RSV Immunization Patients Un sree 20 months Aged Out No longer eligible b ased on patient's age to complete this topic Varicella Vaccines Aged Out No longer eligible based on patient's age to complete this topic Procedures Procedure Name Priority Date/Time Associated Diagnosis Comments PAP SMEAR Routine 11/21/2018 from Last 3 Months or Most Recently Relevant to Health Maintenance Results * Pap smear (11/21/2018) 11/21/2018 Narrative HISTORICAL TESTING LAB RESULTING AGENCY - 11/26/2018 4:00 PM EDT [id number] THINPREP PAP, IMAGED: NEGATIVE FOR SQUAMOUS INTRAEPITHELIAL LESION AND MALIGNANCY . BEVERLY IS PRESENT. HYPERKERATOSIS IS PRESENT. ALEN REAL , CT(ASCP) (CASE ELECTRONICALLY SIGNED 11 26 2018) RESULT OF APTIMA HIGH RISK HPV ASSAY: HIGH RISK HPV: ??NEGATIVE (SEROTYPES 16,18,31,33,35,39,45,51,52,56,58,59,66,68) COMPLETED ON 2018-11-23 ADEQUACY: SATISFACTORY ENDOCERVICAL/TRANSFORMATION ZONE COMPONENT ABSENT. SOURCE: THINPREP PAP HPV ANY DX: ??REFLEX 16 AND 18, CERVICAL, IMAGED CLINICAL INFORMATION: HPV ANY DIAGNOSIS. Z12.4, Z01.419, JOSE-MENOPAUSE, PAP HX: 04/2017 ASCUS, UNKNOWN HPV, LMP 03/02/18 May [facility] CYTOLOGY ORDERABLES Final Result HISTORICAL TESTING LAB RESULTING AGENCY from Last 3 Months or Most Recently Relevant to Health Maintenance Care Teams Pcb Designer Relationship Specialty Start Date End Date Eden Barreto MD [address] [place] [id number] PCP - General 02/14/23
--- OUTSIDE RECORDS SUMMARY | 2024-05-29 10:20 | XMS_ITS | Clinical Summary ---
Author Organization [employer] Address [address] [facility] [address] [place] [address] Care Team Providers Care Horticultural Therapist Name Role Phone Radha Leiva WILLIAM Primary Care Provider [phone] Allergies No known active allergies Medications albuterol (Ventolin HFA) 108 (90 Base) MCG/ACT inhaler Inhale 2 puffs every 4 (four) hours if needed for wheezing or shortness of breath. 18 g 3 4 Active albuterol (2.5 MG/3ML) 0.083% nebulizer solution Take 3 mL by nebulization every 6 (six) hours if needed for wheezing. 75 mL 3 4 Active Spacer/Aero-Hol ding Chambers (OptiChamber Cate) misc 1 each every 4 (four) hours if needed (asthma). 1 each 4 Active Blood Pressure kit 1 each 2 times daily. 1 kit 4 07/25/19 25 Active lidocaine (Lidoderm) 5 % patch Apply 1 patch topically Once per day. Remove & discard patch within 12 hours or as directed by MD. May use 2 patches at once. 60 patch 2 4 08/15/19 25 Active Diclofenac Sodium 1 % gel Apply 4 g topically if needed in the morning, at noon, in the evening, and at bedtime (pain). 100 g 1 4 Active fluticasone (Flonase) 50 MCG/ACT nasal spray Administer 2 sprays into each nostril if needed each day for rhinitis. Shake gently. Before first use, prime pump. After use, clean tip and replace cap. 16 g 1 5 03/28/19 26 Active guaiFENesin (Mucinex) 600 MG 12 hr tablet Take 2 tablets (1,200 mg) by mouth if needed in the morning and at bedtime for cough or congestion. Do not crush, chew, or split. 30 tablet 5 03/28/19 26 Active cetirizine (ZyrTEC ALLERGY) 10 MG tablet Take 1 tablet (10 mg) by mouth if needed each day for rhinitis. 30 tablet 1 5 03/28/19 26 Active celecoxib (CeleBREX) 200 MG capsuleIndicati ons:Right hip pain 1 tab BID as needed for pain 60 capsule 2 5 Active Active Problems Problem Noted Date Diagnosed Date Heart murmur 07/25/2023 Hip pain 03/11/2023 Assessment & Plan (03/11/2023 3:38 PM EST): There is pain in left hip w external rotation, otherwise normal exam Likely tendon/muscle pathology -advised rest -warm compress -tylenol prn/NSAIDS prn -alarm signs and symptoms , if no better in next week to RTC to clinic to reevaluate Skin lesion 02/16/2023 Assessment & Plan (03/11/2023 3:39 PM EST): Round mild scaly lesion aprox 3 cm patch in right arm ---likely fungal s/p clotrimazole BID x 14 days w no complete improvement from last evaluation at [facility] -will try w ketokonazole daily for 1 week then twice a week for 4 weeks -RTC in 4 weeks if no improvement to reevaluate Assessment & Plan (02/16/2023 11:49 PM EST): Round mild scaly lesion aprox 3 cm patch in right arm ---likely fungal -px clotrimazole BID x 14 days up to 21 days if needed -if after tx no better to return to [facility] to reeval Ingrowing nail, right great toe 01/12/2023 Assessment & Plan (01/12/2023 4:30 PM EST): No evidence of superinfection. Nails parred down and subungunal debris debulked. Will need podiatry for appropirate treatment. Referral palced. Advise call for any increased pain, swelling or redness. She agrees with the plan. Ingrowing nail, left great toe 01/12/2023 Intermittent asthma 03/27/2017 Menopausal flushing 03/27/2017 Encounters Date Type Department Care Team Description 05/14/2024 9:30 AM EDT Office Visit [facility] [address] [place] [address] Jennifer Sosa MD Other viral warts (Primary Dx) 05/14/2024 Travel 04/12/2024 Travel 04/12/[address] [address] Radha Leiva ANP Results 04/12/2024 Orders Only [address] [address] Radha Leiva ANP Right hip pain (Primary Dx) 04/12/[address] [address] Radha Leiva ANP New script 03/28/2024 2:20 PM EST Office Visit [facility] [address] [place] [phone] Xochilt Cummings DO COVID-19 (Primary Dx) 03/12/2024 1:30 PM EST Office Visit [address] [phone] Radha Leiva ANP Healthcare maintenance (Primary Dx); Encounter for immunization; Dyslipidemia; Sleep disturbance; Right hip pain 03/12/2024 Travel 03/01/[address] [facility] [address] [place] [phone] Radha Leiva ANP Pre-visit Planning (SDOH Screening negative and Tobacco screening negative) from Last 3 Months Immunizations Name Administration Dates Next Due Influenza Injectable Quadriv alant Preservative Free IIV4 MDCK 01/25/2021,11/30/2019 Influenza injectable quadrivalent preservative f ree 11/24/2021,02/13/2018 Influenza, seasonal, injectable, preservative fr ee 03/12/2024 Pfizer Covid-19 Vaccine 12+ 03/12/2024 Pneumococcal Polysaccharide PPSV23 10/04/2019 Tdap 10/04/2019 Zoster, Recombinant 08/25/2020,02/20/2020 Social History Tobacco Use Types Packs/Day Years Used Date Smoking Tobacco: Never Smokeless Tobacco: Never Tobacco Cessation:Counseling Given: Not Answered Alcohol Use Standard Drinks/Week Comments Never 0 (1 standard drink = 0.6 oz pur e alcohol) Depression Answer Date Recorded Patient Health Questionnaire-9 Score 4 03/12/2024 Patient Health Questionnaire-9 Score 4 03/12/2024 Last PHQ-9: Questionnaire Data Not on file 0 03/12/2024 Housing Stability Answer Date Recorded What is your housing situation today? I have cesario miller 03/01/[address] you li ve. Do you have problems with any of the following? None of the above 03/01/2024 Food Insecurity Answer Date Recorded Within the past 12 months, y ou worried that your food would run out before you got money to buy more: Never True 03/01/2024 Within the past 12 months,th e food you bought just didn't last and you didn't have enough money to get more: Never True 04/2024 Transportation Answer Date Recorded In the past 12 months, has l ack of transportation kept you from medical appts, meetings, work or from getting things needed for daily living? No 03/01/2024 Utilities Answer Date Recorded In the past 12 months, has t he electric, gas, oil or water company threatened to shut off services in your home? No 03/01/2024 Depression Answer Date Recorded Patient Health Questionnaire-2 Score 1 03/12/2024 Internet Access Answer Date Recorded Internet Access Q1 Yes 03/01/2024 Internet Access Q2 Not on file 03/01/2024 Comments No Sex and Gender Information Value Date Recorded Sex Assigned at Female 12/27/2021 10:32 AM EDT Legal Sex Female 10:32 AM EDT Gender Identity Female 12/27/2021 10:32 AM EDT Sexual Orientation Straight 12/27/2021 10 :32 AM EDT Last Filed Vital Signs Vital Sign Reading Time Taken Comments Blood Pressure 125/91 05/14/2024 9:18 AM EDT Pulse 67 05/14/2024 9:18 AM EDT Temperature 36.7 ??C (98 ??F) 05/14/2024 9:18 AM EDT Respiratory Rate 20 05/14/2024 9:18 AM EDT Oxygen Saturation 99% 05/14/2024 9:18 AM EDT Inhaled Oxygen Concentration - - Weight 61.2 kg (135 lb) 05/14/2024 9:18 AM EDT Height 157.5 cm (5' 2 ) 05/14/2024 9:18 AM EDT Body Mass Index 24.69 05/14/2024 9:18 AM EDT Plan of Treatment Upcoming Encounters Date Type Department Care Team (Late st Contact Info) Description 06/25/2024 9:00 AM EDT Office Visit [facility] [address], [place] [phone] Joon Sierra, CNM [address], [place] [phone] Health Maintenance Due Date Last Done Comments CT Colonography 1965 FIT DNA/Cologuard 1965 FIT 1965 FOBT 1965 Sigmoidoscopy 1965 Hepatitis C Screening 09/14/1981 Pneumococcal Vaccine: 50+ Years (2 of 2 - PCV) 10/03/2020 10/04/2019 RSV Patients and Patients Aged 60 years or older (1 - Risk 60-74 years 1-dose series) 2023 SDOH Screening 03/01/2025 03/01/2024 Alcohol/Substance Use Screening 03/12/2025 03/12/2024 Depression Screening 03/12/2025 03/12/2024, 03/12/19 25 Tobacco Screening 05/14/2025 05/14/2024 Mammogram 07/09/2025 07/10/2023, 06/27, 09/27/2022, Additional history exists Colonoscopy 08/12/2027 Colorectal Cancer Screening 08/12/2027 Cervical Cancer Screening 06/20/2028 HPV/Cotest 06/20/2028 06/21/2023, 03/02/2020, 05/24/2017 Pap Smear 06/20/2028 06/21/2023, 05/27/2020 DTaP/Tdap/Td Vaccines (2 - Td or Tdap) 10/03/2029 10/04/2019 Zoster Vaccines Completed 08/25/2020, 02/20/2020 HIV Screening Completed 07/22/2021 COVID-19 Vaccine Completed 03/12/2024, , 03/12/2021, Additional history exists Influenza Vaccine Completed 03/12/2024, , 01/25/2021, Additional history exists HIB Vaccines Aged Out No longer eligi [...] patient's age to complete this topic Meningococcal Vaccine Aged Out No dafne consuelo eligible based on patient's age to complete this topic RSV under 20 months Aged Out No longe r eligible based on patient's age to complete this topic Rotavirus Vaccines Aged Out No longer eligible based on patient's age to complete this topic Procedures Procedure Name Priority Date/Time Associated Diagnosis Comments DESTRUCTION OF LESION Routine 05/14/2024 10:59 AM EDT Other viral warts POCT INFLUENZA B (ID NOW RAPID MOLECULAR) Routine 03/28/2024 4:00 PM EST COVID-19 POCT INFLUENZA A (ID NOW RAPID MOLECULAR) Routine 03/28/2024 4:00 PM EST COVID-19 POCT RAPID STREP A Routine 03/28/2024 1: 56 PM EST COVID-19 POCT RAPID COVID ANTIGEN Routine 03/28/2024 1:56 PM EST COVID-19 COMPREHENSIVE METABOLIC PANEL Routine 03/13/2024 8:16 AM EST Dyslipidemia LIPID PANEL, STANDARD Routine 03/13/2024 8:16 AM EST Dyslipidemia BI MAMMOGRAM DIAGNOSTIC TOMOSYNTHESIS BILATERAL Urgent 07/10/2023 2:20 PM EDT Subareolar mass of left breast HPV MRNA E6/E7 REFLEX TO HPV 16, 18/45 Routine 06/21/2023 9:09 AM EDT PAP SMEAR Routine 06/21/2023 9:09 AM EDT Cervical cancer screening HIV 1/2 ANTIGEN/ANTIBODY, FOURTH GENERATION W/RFL Routine 07/22/2021 8:04 AM EDT from Last 3 Months or Most Recently Relevant to Health Maintenance Results * Destruction of lesion (05/14/2024 10:59 AM EDT) Jennifer Alicia MD - 05/14/2024 10:59 AM EDT Jennifer Sosa MD ? 05/14/2024 ??3:42 PM Destruction of lesion Date/Time: 05/14/2024 10:59 AM Performed by: Jennifer Sosa MD Authorized by: Jennifer Sosa MD ?? Consent: ??Consent obtained: ??Written ??Consent given by: ??Patient ??Risks discussed: ??Pain and poor cosmetic result ??Alternatives discussed: ??Observation [place] protocol: ??Procedure explained and questions answered to patient or proxy's satisfaction: yes ?Relevant documents present and verified: no ?Test results available: no ?Imaging studies available: no ?Required blood products, implants, devices, and special equipment available: yes ?Site/side marked: yes ?? Number of Lesions: 1 Lesion 1: ??Body area: trunk ??Initial size (mm): 1 ??Final defect size (mm): 1 ??Malignancy: benign lesion ?Destruction method: electrosurgery ?? Comments: Electrodesiccation. ??Procedure well-tolerated. us Jennifer Sosa MD DERM PROCEDURE ORDERABLES F inal Result * Influenza B (ID NOW Rapid Molecular) (03/28/2024 4:00 PM EST) [facility] Influenza B Negative Negative, Indeterminate [facility] Swab 03/28/2024 4:00 PM EST Xochilt Cummings DO POINT OF CARE TEST ENTER/VANNESA T ORDERABLES Final Result Performing Organization Address [facility]/ZIP Co de Phone Number [facility] [address] [place] [phone] * Influenza A (ID NOW Rapid Molecular) (03/28/2024 4:00 PM EST) [facility] Influenza A Negative Negative, Indeterminate [facility] Swab 03/28/2024 4:00 PM EST Xochilt Cummings DO POINT OF CARE TEST ENTER/VANNESA T ORDERABLES Final Result Performing Organization Address [facility] Co de Phone Number [facility] [address] [place] [phone] * (ABNORMAL) POCT Rapid COVID Ag (03/28/2024 1:56 PM EST) [facility] Rapid COVID Ag Positive Swab 03/28/2024 1:56 PM EST Result [facility] Xochilt Cummings DO POINT OF CARE TEST ENTER/VANNESA T ORDERABLES Final Result * POCT rapid strep A manually resulted (03/28/2024 1:56 PM EST) [facility] Rapid Strep A Screen Negative Negative, None Detected Swab 03/28/2024 1:56 PM EST Xochilt Cummings DO POINT OF CARE TEST ENTER/VANNESA T ORDERABLES Final Result * (ABNORMAL) Lipid Panel, Standard (03/13/2024 8:16 AM EST) [facility] Triglycerides 52 <150 mg/dL [facility] Comment:Desirable Triglyceri de: less than 150 mg/dLBorderline High Triglyceride 150-199 mg/dLHigh Triglyceride: 200-499 mg/dLVery High Triglyceride: greater than or equal to 5OO mg/dL Cholesterol 211(H) <200 mg/dL [facility] Comment:Desirable Cholestero l: less than 200 mg/dLBorderline High Cholesterol: 200-239 mg/dLHigh Cholesterol: greater than 239 mg/dL LDL Cholesterol Calculated 123(H) <100 mg/dL [facility] Comment:Desirable LDL: less than 100 mg/dLNear Optimal/Above Optimal LDL: 110- 129 mg/dLBorderline High LDL: 130-159 mg/dLHigh LDL: 160-189 mg/dLVery High LDL: greater than or equal to 190 mg/dL HDL Cholesterol 78 >40 mg/dL [facility] Comment:Desirable HDL: great er than 40 mg/dL Note: This HDL assay may give artificially low results in patients with liver disease. Blood Venous blood specimen / Unknown 03/13/2024 8:16 AM EST 03/13/2024 11:03 AM EST Radha Leiva [facility] BLOOD ORDERABLES Final Resul t [facility] [address] [place] [phone] * (ABNORMAL) Comprehensive Metabolic Panel (03/13/2024 8:16 AM EST) Sodium 140 135 - 145 mmol/L [facility] Potassium 3.9 3.3 - 5.1 mmol/L [facility] Chloride 107 96 - 108 mmol/L [facility] Carbon Dioxide 29 22 - 29 mmol/L [facility] Anion Gap 8(L) 12 - 20 [facility] Urea Nitrogen (BUN) 23(H) 9 - 16 mg/dL [facility] Creatinine, Serum 0.71 0.5 - 1.4 mg/dL [facility] Estimated Glomerular Filt Rate >60 [facility] Comment:Chronic Kidney Disea se: Estimated GFR < 60 mL/min/1.53y3Qguexd Kidney Disease: Estimated GFR < 15 mL/min/1.73m2 Glucose 93 60 - 115 mg/dL [facility] Calcium 9.0 8.4 - 10.2 mg/dL [facility] Bilirubin, Total 0.6 0.0 - 1.0 mg/dL [facility] Aspartate Amino Transferase 23 5 - 31 U/L [facility] Alanine Aminotransferase 14 0 - 31 U/L [facility] Total Protein 6.7 6.5 - 8.0 g/dL [facility] Albumin Level 3.9 3.5 - 5.0 g/dL [facility] Alkaline Phosphatase 121(H) 39 - 117 U/L [facility] Blood Venous blood specimen / Unknown 03/13/2024 8:16 AM EST 03/13/2024 11:03 AM EST Radha Leiva [facility] BLOOD ORDERABLES Final Resul t Performing Organization Address City/State/[facility] Co de Phone Number [facility] [address] [place] [phone] * BI Mammogram Diagnostic Tomosynthesis Bilateral (07/10/2023 2:20 PM EDT) Anatomical Region Laterality Modality Breast Bilateral Mammography 07/10/2023 2:20 PM EDT Narrative 07/14/2023 12:59 PM EDT ? [facility] ? [address] [address] ? Mammography Report ? Signed ? Patient: Leger,Chad ?MR#: [id number] ?? 8 ? : 1965 ?Acct:[id number] ? Age/Sex: 57 / F ?ADM Date: 05/13/24 ? Loc: HO.MAMMO ? Attending : Joon Sierra CNM ? Ordering Physician: JOON SIERRA CNM ?Results: 1 ?? Negative ? Date of Service: 07/10/23 ?Follow Up: 1 Year From Orig ?? inal Mammogram ? Procedure(s): MM tomosynthesis diagnostic BI ?? Accession Number(s): [id number] ? cc: JOON SIERRA CNM ? EXAMINATION: ?? MM DIAGNOSTIC DIGITAL BREAST TOMOSYNTHESIS, BILATERAL ?? US BREAST LIMITED, BILATERAL ? MAMMOGRAPHY: ?? CLINICAL INFORMATION: ? The patient presents for evaluation of a physician palpated lump in the ?? 6:00 region of the left breast. ? COMPARISON: ?? Mammography: This study is compared with prior breast imaging dating ?? back to 2019. ? TECHNIQUE: ?? Digital breast tomosynthesis is performed in both the craniocaudal and ?? mediolateral oblique views along with computer-aided detection (CAD). ?? Synthesized 2D images are generated from the tomosynthesis. CC and MLO ?? spot compression of the 6:00 region of the left breast was performed. A ?? full lateral view of the left breast was also performed. ? FINDINGS: ?? There are scattered areas of fibroglandular density (ACR BI-RADS breast ?? composition Category b). ? There are no significant masses, abnormal calcifications, or other ?? abnormalities. ?? There are no mammographic correlates with the area of palpable concern ?? in the 6:00 region of the left breast. ? ULTRASOUND: ?? CLINICAL INFORMATION: ?? The patient presents for evaluation of a physician palpated lump in the ?? 6:00 region of the left breast. ? COMPARISON: ?? None ? TECHNIQUE: ?? Targeted sonographic evaluation was performed using a high frequency ?? linear transducer. ?? The 7-12 o'clock area of the right breast was scanned further evaluate ?? a right mammographic finding. ?? The 4- 8:00 region of the left breast in the area of patient's ?? symptomatology was also scanned. ? FINDINGS: ? RIGHT BREAST: No abnormalities of the 7-12 o'clock region of the right ?? breast are present. ?? This area was scanned to evaluate dense breast tissue in the upper ?? outer quadrant. ? LEFT BREAST: No abnormalities of the for-8:00 region of the left breast ?? are present. ? MM/MM tomosynthesis diagnostic BI ?? IMPRESSION: ?? No mammographic or sonographic signs of malignancy in either breast. ? No abnormalities in the patient's area of palpable concern in the 6:00 ?? region of the right breast. ? OVERALL ASSESSMENT: ?? Mammography: BI-RADS 1 - Negative ?? Ultrasound: BI-RADS 1 - Negative ? RECOMMENDATION: ?? 1. Patient should be managed based on the clinical impression. ?2. ?? Otherwise, routine annual screening mammography. ? Results were provided to the patient at time of visit by the ?? technologist. ? This patient's information was entered into a reminder system with a ?? target due date for their next mammogram. ? Dictated By: ?Alia Hickman MD ? Signed By: ?<Electronically signed by Alia Hickman MD in OV> ? 07/14/23 1254 ? DD/ 1420 ? TD/TT: ? Plant Cytologist: ? Procedure Note Ana, Image - 07/14/2023 [facility] [address] [place] [address] [place] [address] Mammography Report Signed Patient: Lillian Leger#: [id number] 8 : 1965Acct:[id number] Age/Sex: 57 / FADM Date: 07/10/23 Loc: [facility] Attending Dr: oJon Sierra CNM Ordering Physician: JOON SIERRAesults: 1 Negative Date of Service: 07/10/23Follow Up: 1 Year From [facility] Mammogram Procedure(s): MM tomosynthesis diagnostic BI Accession Number(s): [id number] cc: JOON SIERRA CNM EXAMINATION: MM DIAGNOSTIC DIGITAL BREAST TOMOSYNTHESIS, BILATERAL US BREAST LIMITED, BILATERAL MAMMOGRAPHY: CLINICAL INFORMATION: The patient presents for evaluation of a physician palpated lump in the 6:00 region of the left breast. COMPARISON: Mammography: This study is compared with prior breast imaging dating back to 2019. TECHNIQUE: Digital breast tomosynthesis is performed in both the craniocaudal and mediolateral oblique views along with computer-aided detection (CAD). Synthesized 2D images are generated from the tomosynthesis. CC and MLO spot compression of the 6:00 region of the left breast was performed. A full lateral view of the left breast was also performed. FINDINGS: There are scattered areas of fibroglandular density (ACR BI-RADS breast composition Category b). There are no significant masses, abnormal calcifications, or other abnormalities. There are no mammographic correlates with the area of palpable concern in the 6:00 region of the left breast. ULTRASOUND: CLINICAL INFORMATION: The patient presents for evaluation of a physician palpated lump in the 6:00 region of the left breast. COMPARISON: None TECHNIQUE: Targeted sonographic evaluation was performed using a high frequency linear transducer. The 7-12 o'clock area of the right breast was scanned further evaluate a right mammographic finding. The 4- 8:00 region of the left breast in the area of patient's symptomatology was also scanned. FINDINGS: RIGHT BREAST: No abnormalities of the 7-12 o'clock region of the right breast are present. This area was scanned to evaluate dense breast tissue in the upper outer quadrant. LEFT BREAST: No abnormalities of the for-8:00 region of the left breast are present. MM/MM tomosynthesis diagnostic BI IMPRESSION: No mammographic or sonographic signs of malignancy in either breast. No abnormalities in the patient's area of palpable concern in the 6:00 region of the right breast. OVERALL ASSESSMENT: Mammography: BI-RADS 1 - Negative Ultrasound: BI-RADS 1 - Negative RECOMMENDATION: 1. Patient should be managed based on the clinical impression. 2. Otherwise, routine annual screening mammography. Results were provided to the patient at time of visit by the technologist. This patient's information was entered into a reminder system with a target due date for their next mammogram. Dictated By: Alia Hickman MD Signed By: <Electronically signed by Alia Hickman MD in OV> 07/14/23 1254 DD/ 1420 TD/TT: Plant Cytologist: Joon Sierra CNM IMG BI PROCEDURES Final R esult * HPV mRNA E6/E7 w/Reflex to HPV Genotypes 16, 18/45 (06/21/2023 9:09 AM EDT) HPV nRNA E6/E7 Not Detected Not Detected [facility] Comment:Methodology: Transcr iption-Mediated AmplificationThis assay detects E6/E7 viral messenger RNA (mRNA) from 14high-risk HPV types (16,18,31,33,35,39,45,51,52,56,58,59,66,68).Cervical sources are required for HPV testing.If a vaginal source from a patient who has had atotal hysterectomy with removal of cervix wassubmitted, please contact the testing laboratoryfor alternative testing options.For additional information, please refer tohttp://education.[employer]/faq/SBI462v7(This link if provided for information/educational purposes only.)THIS TEST WAS PERFORMED AT:[id number] [place] [phone] ROMERO MD HPV mRNA E6/E7 [facility] HPV 16 RNA [facility] HPV 18/45 RNA [facility] 06/21/2023 9:09 AM EDT 06/23/2023 7:30 AM EDT Joon Sierra CNM LAB CYTOLOGY ORDERABLES F inal Result [facility] [address] [place] [phone] * Pap Smear (06/21/2023 9:09 AM EDT) Swab Cervix uteri structure / Unknown 06/21/2023 9:09 AM EDT 06/23/2023 7:30 AM EDT [facility] - 07/11/2023 12:01 PM EDT ----- ------- Name: Chad Leger ?Age/Sex: 57/F ? : 1965 Unit#: [id number] ?? Attend Dr: JOON SIERRA CNM ?Re06/23/23 ?Status: DEP REF ? Location: HO.LNP ?Disch: ? ----- ------- SPEC : [id number] ? RECD: 06/23/23-729 ? STATUS: ??SOUT ? REQ NUM: [id number] ? BRENT: 06/21/23 ? SUBM DR: JOON SIERRA CNM ? ENTERED: ??06/23/23 ?SP TYPE: Pap Smr ?OTHR DR: ? ORDERED: ??Pap Smear ? Interpretation ?? Satisfactory for evaluation. ?? Atrophic. ?? Negative for intraepithelial lesion or malignancy. ?HPV mRNA E6/E7: ?NOT DETECTED ? This assay detects E6/E7 viral messenger RNA (mRNA) from 14 high-risk HPV types (16, 18, ?? 31, 33, 35, 39, 45, 51, 52, 56, 58, 59, 66, 68) ?? HPV testing performed by [facility] [employer] [facility], [place], [place]. ??See reference laboratory ?? portion of the EMR for entire report. ?Clinical Information LMP: Postmenopausal Previous PAP test: Unknown date, Abnormal Other history: NIL/HPV neg preceded by ASCUS ? Material Received ?? ThinPrep-Vaginal/Cervical ----- ------- Signed (signature on file) Ai Urbano MD 07/11/23 1201 ? ----- ------- ? END OF REPORT ? us Joon Sierra [facility] CYTOLOGY ORDERABLES F inal Result [facility] [address] [place] [phone] * HIV 1/2 ANTIGEN/ANTIBODY,FOURTH GENERATION W/RFL (07/22/2021 8:04 AM EDT) [facility] HIV-1/2 ANTIGEN AND ANTIBODIES, 4TH GENERATION W/ REFLEX NON-REACT LOR NON-REACT LOR [facility] Comment: HIV-1 antigen and HIV-1/HIV-2 antibodies were not detected. There is no laboratory evidence of HIV infection. ?? PLEASE NOTE: This information has been disclosed to you from records whose confidentiality may be protected by state law. ??If your state requires such protection, then the state law prohibits you from making any further disclosure of the information without the specific written consent of the person to whom it pertains, or as otherwise permitted by law. A general authorization for the release of medical or other information is NOT sufficient for this purpose. ? For additional information please refer to http://education.NanoPowers/faq/KEH528 (This link is being provided for informational/ educational purposes only.) ? The performance of this assay has not been clinically validated in patients less than 2 years old. ?? 07/22/2021 8:04 AM EDT us Radha THOMAS LAB BLOOD ORDERABLES Final Resul t [facility] [address] from Last 3 Months or Most Recently Relevant to Health Maintenance Insurance [facility] [facility] Care Teams Horticultural Therapist Relationship Specialty Start Date End Date Radha Leiva ANP [address] [place] [phone] PCP - General Family Medicine 07/16/19
== END 2024-05-29 09:47 | disposition home or self-care (01) ==
LOC: HO.HCS 09:20
PROVIDERS: PCP Nurse Practitioner Primary Care; Visit Provider Internal Medicine Cardiovascular Disease
DX: R01.1 Cardiac murmur, unspecified (principal)
CPT/HCPCS: 99213

== ENCOUNTER → 2024-05-29 09:19 | Outpatient (BNVA) | payer OTHER, SELFPAY | PROVIDERS: PCP Nurse Practitioner Primary Care; Visit Provider Internal Medicine Cardiovascular Disease | DX: R01.1 Cardiac murmur, unspecified (principal) | CPT/HCPCS: 99212 ==

== ENCOUNTER 2024-06-25 16:25 | Outpatient (REF) | payer OTHER, SELFPAY ==
[2024-06-25 17:46] LABS: Bacterial Vaginosis PCR NEGATIVE (Negative); Candida Group PCR NOT DETECTED (Not Detect); Candida glab krusei PCR NOT DETECTED (Not Detect); Trichomonas vaginalis PCR NOT DETECTED (Not Detect)
--- OUTSIDE RECORDS SUMMARY | 2024-06-25 18:30 | XMS_ITS | Encounter Summary ---
Author Organization [employer] Address [address] [facility] 7t [place] [address] Care Team Providers Care Filament Maker Name Role Phone Abbie Radha THOMAS Primary Care Provider [phone] Reason for Visit * Reason Comments Gynecologic Exam Encounter Details Date Type Department Care Team ([facility] Contact Info) Description 06/25/2024 9:00 AM EDT Office Visit [facility] [address] [place], [place] [phone] Carina Osborne CNM [address] [place] [address] Visit for pelvic exam (Primary Dx); Vulvar itching Social History Tobacco Use Types Packs/Day Years Used Date Smoking Tobacco: Never Smokeless Tobacco: Never Alcohol Use Standard Drinks/Week Comments Never 0 [...] Orientation Straight 12/27/2021 10 :32 AM EDT documented as of this encounter Last Filed Vital Signs Vital Sign Reading Time Taken Comments Blood Pressure 125/74 06/25/2024 9:12 AM EDT Pulse 63 06/25/2024 9:12 AM EDT Temperature 36.6 ??C (97.8 ??F) 06/25/2024 9:12 AM ED T Respiratory Rate 16 06/25/2024 9:12 AM EDT Oxygen Saturation 98% 06/25/2024 9:12 AM EDT Inhaled Oxygen Concentration - - Weight 61.1 kg (134 lb 12.8 oz) 06/25/2024 9:12 AM EDT Height 157.5 cm (5' 2 ) 06/25/2024 9:12 AM EDT Body Mass Index 24.66 06/25/2024 9:12 AM EDT documented in this encounter Progress Notes * Carina Osborne CNM - 06/25/2024 9:00 AM EDT Subjective Patient ID: Chad Leger is a 58 y.o. 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 Pap NIL/HPV neg 04/2020, preceded by ASCUS/HPV neg 04/2017. Mammogram BIRADS 1, cat b 06/2023. Benign left breast lumpectomy 08/2023. Reports occasional pain around the scar. s/p BTL. Postmenopausal early 50s, no bleeding since then. Known cystocele, asymptomatic. Symptoms improved with Kegels and weight loss. No urinary or vaginal symptoms today. Reports occasional itch on the right side of labial majora. Vasomotor symptoms much improved. No new partners since last visit, not currently sexually active. No personal fracture, no parental hip fracture. Mild hip arthritis. Lives alone, feels safe at home.Family lives nearby. 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 Going to gym 4x/week. Review of Systems Respiratory: Negative for chest tightness, shortness of breath and wheezing. Cardiovascular: Negative for chest pain and palpitations. Genitourinary: Negative for dyspareunia, dysuria, frequency, genital sores, hematuria, menstrual problem, pelvic pain, urgency, vaginal bleeding, vaginal discharge and vaginal pain. No abnormal pap, no abnormal bleeding, no breast pain, no breast mass, no nipple discharge Psychiatric/Behavioral: Negative for suicidal ideas. Objective BP 125/74 (BP Location: Left arm, Patient Position: Sitting, BP Cuff Size: Adult) Pulse 63 Temp97.8 ??F (36.6 ??C) (Temporal) Resp 16 Ht 5' 2 (1.575 m) Wt 134 lb 12.8 oz (61.1 kg) SpO2 98% BMI 24.66 kg/m?? Physical Exam Exam conducted with a road roller operator hot mix present (Carina Osborne). Constitutional: Appearance: Normal appearance. Chest: Breasts: Right: Normal. No swelling, bleeding, inverted nipple, mass, nipple discharge, skin change or tenderness. Left: Normal. No swelling, bleeding, inverted nipple, mass, nipple discharge, skin change or tenderness. Comments: Well healed periareolar scar on left breast Genitourinary: General: Normal vulva. Labia: Right: Rash present. No tenderness, lesion or injury. Left: No rash, tenderness, lesion or injury. Vagina: Normal. No signs of injury and foreign body. No vaginal discharge, erythema, tenderness, bleeding or lesions. Cervix: No cervical motion tenderness, discharge, friability, lesion, erythema, cervical bleeding or eversion. Uterus: Normal. Not enlarged and not tender. Adnexa: Right adnexa normal and left adnexa normal. Right: No mass, tenderness or fullness. Left: No mass, tenderness or fullness. Comments: Ovaries non palpable bilaterally. Good tone with Kegels, no prolapse with Valsalva Vulvar itch with thickening of Lower right labia majora ? Lichenification from itching Lymphadenopathy: Upper Body: Right upper body: No supraclavicular or axillary adenopathy. Left upper body: No supraclavicular or axillary adenopathy. Neurological: Mental Status: She is alert. Psychiatric: Mood and Affect: Mood normal. Behavior: Behavior normal. Assessment/Plan Diagnoses and all orders for this visit: Visit for pelvic exam Follow up in one year HPV / pap 2028 Routine mammography Report vaginal bleeding STI testing with new partners Vulvar itching - Bacterial Vaginosis Panel Will rule out yeast / BV if negative consider trial of topical estrogen Avoid all vaginal irritants METAL DRAWER Resident Attestation: Patient was seen and evaluated by Ronel CARVALHO in collaboration with Carina Osborne CNM who has reviewed my assessment and plan. I, Carina Osborne CNM, have reviewed the resident's note and agree with the assessment & plan of care as documented above. documented in this encounter Plan of Treatment Not on file documented as of this encounter Procedures Procedure Name Priority Date/Time Associated Diagnosis Comments BACTERIAL VAGINOSIS PANEL Routine 06/25/2024 9:32 AM EDT Vulvar itching documented in this encounter Results * Bacterial Vaginosis Panel (06/25/2024 9:32 AM EDT) TRICHOMONAS VAGINALIS DETECTION BY PCR NOT DETECTED Not Detect [facility] BACTERIAL VAGINOSIS DETECTION BY PCR NEGATIVE Negative [facility] Comment:The BV organism targ ets of the Xpert Xpress MVP test can becommensal in women; Xpert Xpress MVP positive results forbacterial vaginosis should be considered in conjunction withother clinical and patient information to determine thedisease status. Organisms that are not detected by the XpertXpress MVP test have also been reported to be associatedwith BV and aerobic vaginitis.The Xpert Xpress MVP test performance has not been evaluatedin patients under the age of 14. ISABEL GROUP DETECTION BY PCR NOT DETECTED Not Detect [facility] Isabel glab krusei PCR NOT DETECTED Not Detect [facility] Swab Vaginal structure / Unknown 06/25/2024 9:32 AM EDT 06/25/2024 4:25 PM EDT us Carina Osborne CNElizabeth LAB MICROBIOLOGY - GENERA L ORDERABLES Final Result [facility] [address] [place] [phone] documented in this encounter Visit Diagnoses Diagnosis Visit for pelvic exam- Primary Vulvar itching documented in this encounter Additional Health Concerns Assessment Noted Time PHQ-9 Depression Total Score: 4 03/12/19 25 2:26 PM EST documented as of this encounter Care Teams Filament Maker Relationship Specialty Start Date End Date Radha Leiva ANP [address] [place] [phone] PCP - General Family Medicine 07/16/19 documented as of this encounter
--- OUTSIDE RECORDS SUMMARY | 2024-06-25 18:30 | XMS_ITS | Encounter Summary ---
Author Organization [employer] Address [address] [facility] [address] 7[address] [place] [address] Care Team Providers Care Cover Cutter Machine Name Role Phone Radha Leiva WILLIAM Primary Care Provider [phone] Encounter Details Date Type Department Care Team (Latest Contact Info) Description 06/25/2024 Travel Social History Tobacco Use Types Packs/Day Years [...] AM EDT documented as of this encounter Plan of Treatment Not on file documented as of this encounter Visit Diagnoses Not on filedocumented in this encounter Additional Health Concerns Assessment Noted Time PHQ-9 Depression Total Score: 4 03/12/19 25 2:26 PM EST documented as of this encounter Care Teams Cover Cutter Machine Relationship Specialty Start Date End Date Radha Leiva ANP [address] [place] [phone] PCP - General Family Medicine 07/16/19 documented as of this encounter
--- OUTSIDE RECORDS SUMMARY | 2024-06-25 18:31 | XMS_ITS | Clinical Summary ---
Author Organization [employer] Address [address] [facility] 7t [place] [address] Care Team Providers Care Gypsum Roofer Name Role Phone Radha Leiva WILLIAM Primary Care Provider Allergies No known active allergies Medications albuterol [...] no complete improvement from last evaluation at [facility] -will try w ketokonazole daily for 1 [...] after tx no better to return to [facility] to reeval Ingrowing nail, right great toe [...] Encounters Date Type Department Care Team Description 06/25/2024 9:00 AM EDT Office Visit [facility] [address] [place] [phone] Joon Sierra CNM Visit for pelvic exam (Primary Dx); Vulvar itching 06/25/2024 Travel 05/14/2024 9:30 AM EDT Office Visit [facility] [address] [place] [phone] Jennifer Sosa MD Other viral warts (Primary Dx) 05/14/2024 Travel 04/12/2024 Travel 04/12/2024 Telephone [facility] [address] [place] [phone] Radha Leiva ANP Results 04/12/2024 Orders Only [facility] [address] [place] [phone] Radha Leiva ANP Right hip pain (Primary Dx) 04/12/2024 Telephone [facility] [address] [place] [phone] Radha Leiva ANP New script 03/28/2024 2:20 PM EST Office Visit [facility] [address] [place] [phone] Xochilt Cummings DO COVID-19 (Primary Dx) from Last 3 Months Immunizations Name Administration Dates Next Due Influenza Injectable Quadriv alant Preservative Free IIV4 MDCK 01/25/2021,11/30/2019 Influenza injectable quadrivalent preservative f ree 11/24/2021,02/13/2018 Influenza, seasonal, injectable, preservative fr ee 03/12/2024 Pfizer Covid-19 Vaccine 12+ 03/12/2024 Pneumococcal Polysaccharide PPSV23 10/04/2019 Tdap 10/04/2019 Zoster, Recombinant 08/25/2020,02/20/2020 Family History Medical History Relation Name Comments Breast cancer Mother's Sister Relation Name Status Comments Mother's Sister Social History Tobacco Use Types Packs/Day Years [...] Mass Index 24.66 06/25/2024 9:12 AM EDT Plan of Treatment Health Maintenance Due Date [...] Screening 03/12/2025 03/12/2024, 03/12/19 25 Tobacco Screening 06/25/2025 06/25/2024 Mammogram 07/09/2025 07/10/2023, 06/27, 09/27/2022, Additional history [...] Routine 06/25/2024 9:32 AM EDT Vulvar itching DESTRUCTION OF LESION Routine 05/14/2024 10:59 AM EDT Other viral warts POCT INFLUENZA B (ID NOW RAPID MOLECULAR) Routine 03/28/2024 4:00 PM EST COVID-19 POCT INFLUENZA A (ID NOW RAPID MOLECULAR) Routine 03/28/2024 4:00 PM EST COVID-19 POCT RAPID STREP A Routine 03/28/2024 1: 56 PM EST COVID-19 POCT RAPID COVID ANTIGEN Routine 03/28/2024 1:56 PM EST COVID-19 BI MAMMOGRAM DIAGNOSTIC TOMOSYNTHESIS BILATERAL Urgent 07/10/2023 2:20 PM EDT Subareolar mass of left breast HPV MRNA E6/E7 REFLEX TO HPV 16, 18/45 Routine 06/21/2023 9:09 AM EDT PAP SMEAR Routine 06/21/2023 9:09 AM EDT Cervical cancer screening HIV 1/2 ANTIGEN/ANTIBODY, FOURTH GENERATION W/RFL Routine 07/22/2021 8:04 AM EDT from Last 3 Months or Most Recently Relevant to Health Maintenance Results * Bacterial Vaginosis Panel (06/25/2024 9:32 AM EDT) TRICHOMONAS VAGINALIS DETECTION BY PCR NOT DETECTED Not Detect [facility] BACTERIAL VAGINOSIS DETECTION BY PCR NEGATIVE Negative [facility] Comment:The BV organism targ ets of [...] DETECTION BY PCR NOT DETECTED Not Detect [facility] Isabel glab krusei PCR NOT DETECTED Not Detect [facility] Swab Vaginal structure / Unknown 06/25/2024 9:32 AM EDT 06/25/2024 4:25 PM EDT Joon [facility] LAB MICROBIOLOGY - GENERA L ORDERABLES Final Result [facility] [address] [place] [phone] * Destruction of lesion (05/14/2024 10:59 AM EDT) Narrative Jennifer Sosa MD - 05/14/2024 10:59 AM EDT Jennifer Sosa MD ? 05/14/2024 ??3:42 PM Destruction of lesion Date/Time: 05/14/2024 10:59 AM Performed by: Jennifer Sosa MD Authorized by: Jennifer Sosa MD ?? Consent: ??Consent obtained: ??Written ??Consent given by: ??Patient ??Risks discussed: ??Pain and poor cosmetic result ??Alternatives discussed: ??Observation [place] protocol: ??Procedure explained and questions answered to [...] NOW Rapid Molecular) (03/28/2024 4:00 PM EST) [facility] Influenza B Negative Negative, Indeterminate [facility] Swab 03/28/2024 4:00 PM EST Xochilt Cummings DO POINT OF CARE TEST ENTER/VANNESA T ORDERABLES Final Result Performing Organization Address [facility]/ZIP Co de Phone Number [facility] [address] [place] [phone] * Influenza A (ID NOW Rapid Molecular) (03/28/2024 4:00 PM EST) [facility] Influenza A Negative Negative, Indeterminate [facility] Swab 03/28/2024 4:00 PM EST Xochilt Cummings DO POINT OF CARE TEST ENTER/VANNESA T ORDERABLES Final Result Performing Organization Address [facility]/RUST Co de Phone Number [facility] [address] [place] [phone] * (ABNORMAL) POCT Rapid COVID Ag (03/28/2024 1:56 PM EST) [facility] Rapid COVID Ag Positive Swab 03/28/2024 1:56 PM EST Xochilt Cummings DO POINT OF CARE TEST ENTER/VANNESA T ORDERABLES Final Result * POCT rapid strep A manually resulted (03/28/2024 1:56 PM EST) Rapid Strep A Screen Negative Negative, None Detected Swab 03/28/2024 1:56 PM EST Xochilt Cummings DO POINT OF CARE TEST ENTER/AVNNESA T ORDERABLES Final Result * BI Mammogram Diagnostic Tomosynthesis Bilateral (07/10/2023 2:20 PM EDT) Anatomical Region Laterality Modality Breast Bilateral Mammography 07/10/2023 2:20 PM EDT Narrative 07/14/2023 12:59 PM EDT ? [facility] ? [address] ?[place] [address] ? Mammography Report ? Signed ? Patient: Leger,Chad ?MR#: [id number] ?? 8 ? : 1965 ?Acct:[id number] ? Age/Sex: 57 / F ?ADM Date: 05/13/24 ? Loc: HO.MAMMO ? Attending Dr: Joon Sierra CNM ? Ordering Physician: JOON SIERRA CNM ?Results: 1 ?? Negative ? Date of Service: /13/24 ?Follow Up: 1 Year From Orig ?? inal Mammogram ? Procedure(s): MM tomosynthesis diagnostic BI ?? Accession Number(s): [id number] ? cc: JOON SIERRA CNM ? EXAMINATION: [...] 1254 ? DD/ 1420 ? TD/TT: ? Counter Supervisor: ? Procedure Note Ana, Image - 07/14/2023 [facility] [address] [place] [address] Mammography Report Signed Patient: Lillian Leger#: [id number] 8 : 1965Acct:[id number] Age/Sex: 57 / FADM Date: 07/10/23 Loc: RO Attending Dr: Joon Sierra CNM Ordering Physician: JOON SIERRAesults: 1 Negative Date of Service: 07/10/23Follow Up: 1 Year From Orig inal Mammogram Procedure(s): MM tomosynthesis diagnostic BI Accession Number(s): [id number] cc: JOON SIERRA CNM EXAMINATION: MM DIAGNOSTIC [...] in OV> 07/14/23 1254 DD/ 1420 TD/TT: Counter Supervisor: us Joon [facility] IMG BI PROCEDURES Final R esult * HPV mRNA E6/E7 w/Reflex to HPV Genotypes 16, 18/45 (06/21/2023 9:09 AM EDT) HPV nRNA E6/E7 Not Detected Not Detected [facility] Comment:Methodology: Transcr iption-Mediated AmplificationThis assay detects E6/E7 viral messenger RNA (mRNA) from 14high-risk HPV types (16,18,31,33,35,39,45,51,52,56,58,59,66,68).Cervical sources are required for HPV testing.If a vaginal source from a patient who has had atotal hysterectomy with removal of cervix wassubmitted, please contact the testing laboratoryfor alternative testing options.For additional information, please refer tohttp://education.elastic.io/faq/GKI552x1(This link if provided for information/educational purposes only.)THIS TEST WAS PERFORMED AT:[employer] [place] [phone] ROMERO MD HPV mRNA E6/E7 [facility] HPV 16 RNA [facility] HPV 18/45 RNA [facility] 06/21/2023 9:09 AM EDT 06/23/2023 7:30 AM EDT Joon Sierra CNM LAB CYTOLOGY ORDERABLES F inal Result [facility] [address] [place] [phone] * Pap Smear (06/21/2023 9:09 AM EDT) Swab Cervix uteri structure / Unknown 06/21/2023 9:09 AM EDT 06/23/2023 7:30 AM EDT Narrative [facility] - 07/11/2023 12:01 PM EDT ----- ------- Name: Chad Leger ?Age/Sex: 57/F ? : 1965 Unit#: [id number] ?? Attend Dr: JOON SIERRA CNM ?Re06/23/23 ?Status: DEP REF ? Location: HO.LNP ?Disch: ? ----- ------- SPEC : [id number] ? RECD: 06/23/23 ? STATUS: ??SOUT ? REQ NUM: [id number] ? BRENT: 06/21/23 ? SUBM DR: JOON SIERRA CNM ? ENTERED: ??06/23/23 ?SP TYPE: Pap Smr ?OTHR : ? ORDERED: ??Pap Smear ? Interpretation ?? Satisfactory for evaluation. ?? Atrophic. ?? Negative for intraepithelial lesion or malignancy. ?HPV mRNA E6/E7: ?NOT DETECTED ? This assay detects E6/E7 viral messenger RNA (mRNA) from 14 high-risk HPV types (16, 18, ?? 31, 33, 35, 39, 45, 51, 52, 56, 58, 59, 66, 68) ?? HPV testing performed by [employer], [place], [place]. ??See reference laboratory ?? portion of the EMR for entire report. ?Clinical Information LMP: Postmenopausal Previous PAP test: Unknown date, Abnormal Other history: NIL/HPV neg preceded by ASCUS ? Material Received ?? ThinPrep-Vaginal/Cervical ----- ------- Signed (signature on file) Ai Urbano MD 07/11/23 9569 ? ----- ------- ? END OF REPORT ? Joon [place] [facility] CYTOLOGY ORDERABLES F inal Result [facility] [address] [place] [phone] * HIV 1/2 ANTIGEN/ANTIBODY,FOURTH GENERATION W/RFL (07/22/2021 8:04 AM EDT) HIV-1/2 ANTIGEN AND ANTIBODIES, 4TH GENERATION W/ REFLEX NON-[facility] Comment: HIV-1 antigen and HIV-1/HIV-2 [...] ? For additional information please refer to http://education.elastic.io/faq/CEF049 (This link is being provided for informational/ educational purposes only.) ? The performance of this assay has not been clinically validated in patients less than 2 years old. ?? 07/22/2021 8:04 AM EDT Radha Leiva [facility] LAB BLOOD ORDERABLES Final Resul t [facility] [address] from Last 3 Months or Most Recently Relevant to Health Maintenance [facility] Care Teams Gypsum Roofer Relationship Specialty Start Date End Date Radha Leiva ANP [address] [place] [phone] PCP - General Family Medicine 07/16/19
--- OUTSIDE RECORDS SUMMARY | 2024-06-25 18:31 | XMS_ITS | Clinical Summary ---
Author Organization [facility] it Address [address] [place] [address] Care Team Providers Care Physician Chief Of Pathology Name Role Phone Eden Barreto MD Primary Care Provider [phone] Surgical History Surgery Date Site/Laterality Comments TUBAL [...] age to complete this topic Meningococcal B Vaccine Aged Out No l onger eligible based on patient's age to complete [...] RESULTING AGENCY - 11/26/2018 4:00 PM EDT [id number] THINPREP PAP, IMAGED: NEGATIVE FOR SQUAMOUS INTRAEPITHELIAL [...] 04/2017 ASCUS, UNKNOWN HPV, LMP 03/02/18 May [facility] CYTOLOGY ORDERABLES Final Result HISTORICAL TESTING LAB RESULTING AGENCY from Last 3 Months or Most Recently Relevant to Health Maintenance Care Teams Physician Chief Of Pathology Relationship Specialty Start Date End Date Eden Barreto MD [address] [place] [phone] PCP - General 02/14/23
== END 2024-06-25 16:26 | disposition home or self-care (01) ==
LOC: HO.HHCLNP 16:25
PROVIDERS: Visit Provider Advanced Practice Midwife
DX: L29.2 Pruritus vulvae (principal)
CPT/HCPCS: 81515

== ENCOUNTER 2024-10-17 10:44 | Outpatient (REF) | payer OTHER, SELFPAY ==
--- NOTE | ~2024-10-17 | MM_ITS ---
EXAMINATION: MM SCREENING DIGITAL BREAST TOMOSYNTHESIS, BILATERAL CLINICAL INFORMATION: Screening. Asymptomatic. COMPARISON: Mammography: Comparison is made with available priors TECHNIQUE: Digital breast mammography with tomosynthesis is performed in both the craniocaudal and mediolateral oblique views along with computer-aided detection (CAD). FINDINGS: There are scattered areas of fibroglandular density (ACR BI-RADS breast composition Category b). There are no significant masses, abnormal calcifications, or other abnormalities. MM/MM tomosynthesis screening BI IMPRESSION: No mammographic evidence of malignancy. ASSESSMENT: BI-RADS BI-RADS 1 - Negative RECOMMENDATION: Routine annual mammography screening. 1 year F/U This examination should not preclude the clinical evaluation of a suspicious palpable abnormality. This patient's information was entered into a reminder system with a target due date for their next mammogram. Electronically signed by: Malka Hernandez DO 10/21/2024 03:30 PM EDT
--- OUTSIDE RECORDS SUMMARY | 2024-10-17 12:16 | XMS_ITS | Clinical Summary ---
Author Organization [employer] Address [address] [place] [address] [address] [place] [address] Care Team Providers Care Natural Remedy Consultant Name Role Phone Radha Leiva WILLIAM Primary Care Provider [phone] Allergies No known active allergies Medications albuterol (Ventolin HFA) 108 (90 Base) MCG/ACT inhaler Inhale 2 puffs every 4 (four) hours if needed for wheezing or shortness of breath. 18 g 3 024 Active albuterol (2.5 MG/3ML) 0.083% nebulizer solution Take 3 mL by nebulization every 6 (six) hours if needed for wheezing. 75 mL 3 024 Active Spacer/Aero-Holdi ng Chambers (OptiChamber Cate) misc 1 each every 4 (four) hours if needed (asthma). 1 each 024 Active Diclofenac Sodium 1 % gel Apply 4 g topically if needed in the morning, at noon, in the evening, and at bedtime (pain). 100 g 1 024 Active fluticasone (Flonase) 50 MCG/ACT nasal spray Administer 2 sprays into each nostril if needed each day for rhinitis. Shake gently. Before first use, prime pump. After use, clean tip and replace cap. 16 g 1 025 2025 Active guaiFENesin (Mucinex) 600 MG 12 hr tablet Take 2 tablets (1,200 mg) by mouth if needed in the morning and at bedtime for cough or congestion. Do not crush, chew, or split. 30 tablet 025 2025 Active cetirizine (ZyrTEC ALLERGY) 10 MG tablet Take 1 tablet (10 mg) by mouth if needed each day for rhinitis. 30 tablet 1 025 2025 Active estradiol (Estrace) 0.1 MG/GM vaginal cream 1g as directed x 14d, then twice weekly thereafter 85 g Active Ketotifen Fumarate 0.035 % solutionIndicatio ns:Allergic conjunctivitis of both eyes Administer 1 drop into affected eye(s) if needed in the morning and at bedtime (red, itchy eyes). 10 mL 1 Active celecoxib (CeleBREX) 200 MG capsuleIndication s:Right hip pain TAKE 1 CAPSULE BY MOUTH TWICE DAILY NEEDED FOR PAIN 60 capsule 2 025 Active celecoxib (CeleBREX) 200 MG capsuleIndication s:Right hip pain 1 tab BID as needed for pain 60 capsule 2 025 2024 Discontinued Active Problems Problem Noted Date Diagnosed Date Other insomnia 07/16/2024 Heart murmur 07/25/2023 Hip pain 03/11/2023 Assessment [...] no complete improvement from last evaluation at [facility] -will try w ketokonazole daily for [...] after tx no better to return to [facility] to reeval Ingrowing nail, right great [...] Encounters Date Type Department Care Team Description 10/10/2024 9:30 AM EDT Office Visit [facility] [address] [facility] [place] [address] Gauri Claudio MD Right hip pain (Primary Dx); Insomnia, unspecified type 10/10/2024 Travel 10/10/2024 Refill [facility] [address] [place] [address] Radha Leiva ANP Right hip pain 09/24/2024 9:15 AM EDT Office Visit [facility] [address] [place] [address] Gauri Claudio MD Right hip pain (Primary Dx); Insomnia, unspecified type 09/24/2024 Travel 08/22/2024 9:45 AM EDT Office Visit [facility] [address] [place] [address] Gauri Claudio MD Right hip pain (Primary Dx); Insomnia, unspecified type 08/22/2024 Travel 08/13/2024 10:15 AM EDT Office Visit [facility] [address] [place] [address] Gauri Claudio MD Right hip pain (Primary Dx); Insomnia, unspecified type 08/13/2024 Travel 07/23/2024 9:45 AM EDT [facility] [place] [address] Gauri Claudio MD Right hip pain (Primary Dx); Insomnia, unspecified type 07/23/2024 Travel from Last 3 Months Immunizations Immunization Administration Dates Next Due Influenza Injectable Quadriv [...] 63 06/25/2024 9:12 AM EDT Temperature 36.6 C (97.8 F) 06/25/2024 9:12 AM EDT Respiratory Rate 16 06/25/2024 9:12 AM EDT [...] 1965 FIT 1963 FOBT 1965 Sigmoidoscopy 1965 Disability Screening 1965 Hepatitis C Screening 09/14/1981 Pneumococcal Vaccine: 50+ Years (2 of 2 - PCV) 10/03/2020 10/04/2019 RSV Patients and Patients Aged 60 years or older (1 - Risk 60-74 years 1-dose series) 2023 Influenza Vaccine (#1) 2024 , 11/24/2021, 01/25/2021, Additional history exists SDOH Screening 03/01/2025 03/01/2024 Alcohol/Substance Use Screening 03/12/2025 03/12/2024 Depression Screening 03/12/2025 03/12/2024, 03/12/19 25 Mammogram 07/09/2025 07/10/2023, 06/27, 09/27/2022, Additional history exists Tobacco Screening 07/16/2025 07/16/2024 Colonoscopy 08/12/2027 08/11/2017 Colorectal Cancer Screening 08/12/2027 Cervical Cancer Screening 06/20/2028 HPV/Cotest 06/20/2028 06/21/2023, /02/2020, 05/24/2017 Pap Smear 06/20/2028 06/21/2023, 05/27/2020 DTaP/Tdap/Td Vaccines (2 - Td or Tdap) 10/03/2029 10/04/2019 Zoster Vaccines Completed 08/25/2020, 02/20/2020 HIV Screening Completed 07/22/2021 COVID-19 Vaccine Completed 03/12/2024, , 03/12/2021, Additional history exists HIB Vaccines Aged Out [...] Procedure Name Priority Date/Time Associated Diagnosis Comments BI MAMMOGRAM DIAGNOSTIC TOMOSYNTHESIS BILATERAL Urgent 07/10/2023 2:20 PM EDT Subareolar mass of left breast HPV MRNA E6/E7 REFLEX TO HPV 16, 18/45 Routine 06/21/2023 9:09 AM EDT PAP SMEAR Routine 06/21/2023 9:09 AM EDT Cervical cancer screening HIV 1/2 ANTIGEN/ANTIBODY, FOURTH GENERATION W/RFL Routine 07/22/2021 8:04 AM EDT HM COLONOSCOPY Routine 08/11/2017 from Last 3 Months or Most Recently Relevant to Health Maintenance Results * BI Mammogram Diagnostic Tomosynthesis Bilateral (07/10/2023 2:20 PM EDT) Anatomical Region Laterality Modality Breast Bilateral Mammography 07/10/2023 2:20 PM EDT Narrative 07/14/2023 12:59 PM EDT [facility] [address] [place], [place] [address] Mammography Report Signed Patient: Chad Leger MR#: [id number] 8 : 1965 Acct:[id number] Age/Sex: 57 / F ADM Date: 07/10/23 Loc: HO.MAMMO Attending Dr: Joon Sierra CNM Ordering Physician: JOON SIERRA CNM Results: 1 Negative Date of Service: 07/10/23 Follow Up: 1 Year From Orig ina Mammogram Procedure(s): MM tomosynthesis diagnostic BI Accession Number(s): [id number] cc: JOON SIERRA CNM EXAMINATION: MM DIAGNOSTIC [...] in OV> 07/14/23 1254 DD/ 1420 TD/TT: Cashier Gambling: Procedure Note Donotuseinterpreter, Image - 07/14/2023 [facility] [address] [place] [address] Mammography Report Signed Patient: Chad LegerMR#: [id number] 8 : 1965Acct:[id number] Age/Sex: 57 / FADM Date: 07/10/23 Loc: RO Attending Dr: Joon Sierra CNM Ordering Physician: JOON SIERRAesults: 1 Negative Date of Service: 07/10/23Follow Up: 1 Year From Orig inal Mammogram Procedure(s): MM tomosynthesis diagnostic BI Accession Number(s): [id number] cc: JOON SIERRA CNM EXAMINATION: MM DIAGNOSTIC [...] in OV> 07/14/23 1254 DD/ 1420 TD/TT: Cashier Gambling: us Joon Sierra CNM IMG BI PROCEDURES Final R esult * HPV mRNA E6/E7 w/Reflex to HPV Genotypes 16, 18/45 (06/21/2023 9:09 AM EDT) HPV nRNA E6/E7 Not Detected Not Detected [facility] Comment:Methodology: Transcr iption-Mediated AmplificationThis assay detects E6/E7 viral messenger RNA (mRNA) from 14high-risk HPV types (16,18,31,33,35,39,45,51,52,56,58,59,66,68).Cervical sources are required for HPV testing.If a vaginal source from a patient who has had atotal hysterectomy with removal of cervix wassubmitted, please contact the testing laboratoryfor alternative testing options.For additional information, please refer tohttp://education.[employer]/faq/SAV710z8(This link if provided for information/educational purposes only.)THIS TEST WAS PERFORMED AT:[facility] [place] [phone] ROMERO MD HPV mRNA E6/E7 [facility] HPV 16 RNA [facility] HPV 18/45 RNA [facility] 06/21/2023 9:09 AM EDT 06/23/2023 7:30 AM EDT Joon Sierra CNM LAB CYTOLOGY ORDERABLES F inal Result [facility] [address] [place] [address] [phone] * Pap Smear (06/21/2023 9:09 AM EDT) Swab Cervix uteri structure / Unknown 06/21/2023 9:09 AM EDT 06/23/2023 7:30 AM EDT Narrative [facility] - 07/11/2023 12:01 PM EDT ----- ------- Name: Chad Leger Age/Sex: 57/F : 1965 [id number] [id number] Attend Dr: JOON SIERRA CNM Re06/23/23 Status: DEP REF Location: [facility] Disch: ----- ------- SPEC : [id number] RECD: 06/23/23 STATUS: [place] NUM: [id number] BRENT: 06/21/[address] [facility] [address]: JOON SIERRA CNM ENTERED: 06/23/23 SP TYPE: Pap Smr OTHR : ORDERED: Pap Smear Interpretation Satisfactory for evaluation. Atrophic. Negative for intraepithelial lesion or malignancy. HPV mRNA E6/E7: NOT DETECTED This assay detects E6/E7 viral messenger RNA (mRNA) from 14 high-risk HPV types (16, 18, 31, 33, 35, 39, 45, 51, 52, 56, 58, 59, 66, 68) HPV testing performed by [facility], [place], [place]. See reference laboratory portion of the EMR for entire report. Clinical Information LMP: Postmenopausal Previous PAP test: Unknown date, Abnormal Other history: NIL/HPV neg preceded by ASCUS Material Received ThinPrep-Vaginal/Cervical ----- ------- Signed (signature on file) Ai Urbano MD 07/11/23 1201 ----- ------- END OF REPORT Joon Sierra [facility] CYTOLOGY ORDERABLES F inal Result [facility] [address] [place] [phone] * HIV 1/2 ANTIGEN/ANTIBODY,FOURTH GENERATION W/RFL (07/22/2021 8:04 AM EDT) [facility] HIV-1/2 ANTIGEN AND ANTIBODIES, 4TH GENERATION W/ REFLEX NON-REACT LOR NON-REACT LOR [facility] Comment: HIV-1 antigen and HIV-1/HIV-2 antibodies were not detected. There is no laboratory evidence of HIV infection. PLEASE NOTE: This information has been disclosed to you from records whose confidentiality may be protected by state law. If your state requires such protection, then the state law prohibits you from making any further disclosure of the information without the specific written consent of the person to whom it pertains, or as otherwise permitted by law. A general authorization for the release of medical or other information is NOT sufficient for this purpose. For additional information please refer to http://education.Pure life [employer]/faq/ARO740 (This link is being provided for informational/ educational purposes only.) The performance of this assay has not been clinically validated in patients less than 2 years old. 07/22/2021 8:04 AM EDT us Radha Leiva ANP LAB BLOOD ORDERABLES Final Resul t [facility] [address] * Colonoscopy (08/11/2017) Colonoscopy Normal Normal Historical Provider HEALTH MAINTENANCE Final Result from Last 3 Months or Most Recently Relevant to Health Maintenance Insurance [facility] [id number] 2 Care Teams Natural Remedy Consultant Relationship Specialty Start Date End Date Radha Leiva ANP [address] [place] [phone] PCP - General Family Medicine 07/16/19
--- OUTSIDE RECORDS SUMMARY | 2024-10-17 12:16 | XMS_ITS | Clinical Summary ---
Author Organization [facility] it Address [address] [place] [address] Care Team Providers Care Disintegrator Name Role Phone Eden Barreto MD Primary Care Provider [phone] Surgical History Surgery Date Site/Laterality Comments TUBAL [...] 11/21/2021 11/21/2018 Colorectal Cancer Screening: Colonoscopy 01/25/2022 HIV Screening 01/25/2022 Hepatitis C Screening 01/25/2022 Social Influencers of Health Screening 01/25/2022 COVID-19 Vaccine (1 - 2023-2 5 season) 2023 Depression Screening 02/28/2024 Influenza Vaccine (#1) 2024 RSV Immunization Adult Patie nts (1 [...] RESULTING AGENCY - 11/26/2018 4:00 PM EDT [id number] THINPREP PAP, IMAGED: NEGATIVE FOR SQUAMOUS INTRAEPITHELIAL LESION AND MALIGNANCY . BEVERLY IS PRESENT. HYPERKERATOSIS IS PRESENT. ALEN REAL , ELOINA(ASCP) (CASE ELECTRONICALLY SIGNED 11 26 2018) RESULT OF APTIMA HIGH RISK HPV ASSAY: HIGH RISK HPV: NEGATIVE (SEROTYPES 16,18,31,33,35,39,45,51,52,56,58,59,66,68) COMPLETED ON 2018-11-23 ADEQUACY: SATISFACTORY ENDOCERVICAL/TRANSFORMATION ZONE COMPONENT ABSENT. SOURCE: THINPREP PAP HPV ANY DX: REFLEX 16 AND 18, CERVICAL, IMAGED CLINICAL INFORMATION: HPV ANY DIAGNOSIS. Z12.4, Z01.419, JOSE-MENOPAUSE, PAP HX: 04/2017 ASCUS, UNKNOWN HPV, LMP 03/02/18 [facility] CYTOLOGY ORDERABLES Final Result HISTORICAL TESTING LAB RESULTING AGENCY from Last 3 Months or Most Recently Relevant to Health Maintenance Care Teams Disintegrator Relationship Specialty Start Date End Date Eden Barreto MD [address] [place] [address] [place] [phone] PCP - General 02/14/23
== END 2024-10-17 10:45 | disposition home or self-care (01) ==
LOC: HO.MAMMO 10:44
PROVIDERS: PCP Nurse Practitioner Primary Care; Visit Provider Nurse Practitioner Primary Care
DX: Z12.31 Encounter for screening mammogram for malignant neoplasm of breast (principal)
CPT/HCPCS: 77063; 77067

== ENCOUNTER → 2024-10-17 10:45 | Outpatient (BNV) | payer OTHER, SELFPAY | PROVIDERS: PCP Nurse Practitioner Primary Care; Visit Provider Internal Medicine | DX: Z12.31 Encounter for screening mammogram for malignant neoplasm of breast (principal) | CPT/HCPCS: 77063; 77067 ==

== ENCOUNTER 2025-01-17 13:37 | Outpatient (REF) | payer OTHER, SELFPAY ==
--- NOTE | ~2025-01-17 | XR_ITS ---
EXAMINATION: XR SHOULDER, LEFT CLINICAL INFORMATION: PAIN COMPARISON: None available. TECHNIQUE: Four views of the left shoulder. FINDINGS: Glenohumeral joint space is maintained. 1.3] ossification abutting the inferior aspect of the humeral head. Findings suggestive of loose body versus atypical osteophyte. No acute fracture or dislocation. Acromioclavicular dictation is maintained. No abnormal soft tissue calcification. XR/XR shoulder LT min 2V IMPRESSION: No acute osseous findings. 1.3 cm ossification inferior to the humeral head, probable loose body. Electronically signed by: Lukasz Hamilton MD 01/17/2025 02:03 PM REN
--- OUTSIDE RECORDS SUMMARY | 2025-01-17 13:15 | XMS_ITS | Encounter Summary ---
Author Organization [employer] Address [address] [place] [address] [address] [place] [address] Care Team Providers Care Live In Companion Name Role Phone Radha Leiva WILLIAM Primary Care Provider [phone] Reason for Visit * Reason Comments sick visit Shoulder pain Encounter Details Date Type Department Care Team ([facility] st Contact Info) Description 01/17/2025 1:15 PM EST Office Visit [facility] [address] [place] [address] Acute pain of left shoulder (Primary Dx) Social History Tobacco Use Types Packs/Day Years [...] Sign Reading Time Taken Comments Blood Pressure 110/80 01/17/2025 1:03 PM EST Pulse 60 01/17/2025 1:03 PM EST Temperature 36.6 C (97.8 F) 01/17/2025 1:03 PM EST Respiratory Rate 16 01/17/2025 1:03 PM EST Oxygen Saturation - - Inhaled Oxygen Concentration - - Weight 62 kg (136 lb 9.6 oz) 01/17/2025 1:03 PM EST Height 157.5 cm (5' 2 ) 01/17/2025 1:03 PM EST Body Mass Index 24.98 01/17/2025 1:03 PM EST documented in this encounter Plan of Treatment Upcoming Encounters Date Type Department Care Team (Late st Contact Info) Description 03/14/2025 9:45 AM EST Office Visit [facility] [address] [place] [address] Radha Leiva ANP [address] [place] [address] documented as of this encounter Visit Diagnoses Diagnosis Acute pain of left shoulder- Primary documented in this encounter Additional Health Concerns Assessment Noted Time PHQ-9 Depression Total Score: 4 03/12/19 25 2:26 PM EST documented as of this encounter Care Teams Live In Companion Relationship Specialty Start Date End Date Radha Leiva ANP [address] [place] [phone] PCP - General Family Medicine 07/16/19 documented as of this encounter
--- OUTSIDE RECORDS SUMMARY | 2025-01-17 14:01 | XMS_ITS | Clinical Summary ---
Author Organization [facility] it Address [address] [place] [address] Care Team Providers Care Senior Linux Unix Administrator Name Role Phone Eden Barreto MD Primary Care Provider [phone] Surgical History Surgery Date Site/Laterality Comments TUBAL [...] Last Done Comments Breast Cancer Screening 1965 Colorectal Cancer Screening: Colonoscopy 1965 DTaP,Tdap,and Td Vaccines (1 - Tdap) 09/14/1982 Pneumococcal Vaccine: 50+ Ye ars (1 of 1 - PCV) 09/14/2013 Zoster Vaccines (1 of 2) 09/14/2013 Cervical Cancer Screening: P ap Smear 11/21/2021 11/21/2018 HIV Screening 01/25/2022 Hepatitis C Screening 01/25/2022 Social Influencers of Health Screening 01/25/2022 Depression Screening 02/28/2024 COVID-19 Vaccine (1 - 2024-2 6 season) 2024 Influenza Vaccine (#1) 2024 RSV Immunization Adult [...] RESULTING AGENCY - 11/26/2018 4:00 PM EDT [id number] THINPREP PAP, IMAGED: NEGATIVE FOR SQUAMOUS INTRAEPITHELIAL [...] ASCUS, UNKNOWN HPV, LMP 03/02/18 [facility] CYTOLOGY ORDERABLES Final Result HISTORICAL TESTING LAB RESULTING AGENCY from Last 3 Months or Most Recently Relevant to Health Maintenance Care Teams Senior Linux Unix Administrator Relationship Specialty Start Date End Date Eden Barreto MD [address] [place] [address] [place] [phone] PCP - General 02/14/23
--- OUTSIDE RECORDS SUMMARY | 2025-01-17 14:01 | XMS_ITS | Clinical Summary ---
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 18 g 3 07/25/19 24 Active albuterol (2.5 MG/3ML) 0.083% nebulizer solution Take 3 mL by nebulization every 6 (six) hours if needed for wheezing. 75 mL 3 07/25/19 24 Active Spacer/Aero-Holdin g Chambers (OptiChamber Cate) misc 1 each every 4 (four) hours if needed (asthma). 1 each 07/25/19 24 Active Diclofenac Sodium 1 % gel Apply 4 g topically if needed in the morning, at noon, in the evening, and at bedtime (pain). 100 g 1 08/15/19 24 Active fluticasone (Flonase) 50 MCG/ACT nasal spray Administer 2 sprays into each nostril if needed each day for rhinitis. Shake gently. Before first use, prime pump. After use, clean tip and replace cap. 16 g 1 03/28/19 25 026 Active guaiFENesin (Mucinex) 600 MG 12 hr tablet Take 2 tablets (1,200 mg) by mouth if needed in the morning and at bedtime for cough or congestion. Do not crush, chew, or split. 30 tablet 03/28/19 25 026 Active cetirizine (ZyrTEC ALLERGY) 10 MG tablet Take 1 tablet (10 mg) by mouth if needed each day for rhinitis. 30 tablet 1 03/28/19 25 026 Active estradiol (Estrace) 0.1 MG/GM vaginal cream 1g as directed x 14d, then twice weekly thereafter 85 g 06/27/19 25 Active Ketotifen Fumarate 0.035 % solutionIndication s:Allergic conjunctivitis of both eyes Administer 1 drop into affected eye(s) if needed in the morning and at bedtime (red, itchy eyes). 10 mL 1 07/17/19 25 Active celecoxib (CeleBREX) 200 MG capsuleIndications :Right hip pain TAKE 1 CAPSULE BY MOUTH TWICE DAILY NEEDED FOR PAIN 60 capsule 2 10/11/19 25 Active ibuprofen 600 MG tabletIndications: Acute pain of left shoulder Take 1 tablet (600 mg) by mouth 3 times daily. 90 tablet 01/18/20 25 025 Active Active Problems Problem Noted Date Diagnosed [...] no complete improvement from last evaluation at [facility] -will try w ketokonazole daily for 1 [...] after tx no better to return to [facility] to reeval Ingrowing nail, right great toe [...] Encounters Date Type Department Care Team Description 01/17/2025 1:15 PM EST Office Visit [facility] [address] [place] [phone] Acute pain of left shoulder (Primary Dx) 01/17/2025 Travel 12/25/[address] [facility] [address] [place] [address] [phone] Dora Fountain ANP February recall 10/17/[address] [facility] [address] [place] [phone] Dora Fountain ANP from Last 3 Months Immunizations Immunization Administration [...] 16 01/17/2025 1:03 PM EST Oxygen Saturation 98% 06/25/2024 9:12 AM EDT Inhaled Oxygen Concentration - - Weight 62 kg (136 lb 9.6 oz) 01/17/2025 1:03 PM EST Height 157.5 cm (5' 2 ) 01/17/2025 1:03 PM EST Body Mass Index 24.98 01/17/2025 1:03 PM EST Plan of Treatment Upcoming Encounters Date Type Department Care Team (Late st Contact Info) Description 03/14/2025 9:45 AM EST Office Visit [facility] [address] [place] [address] Dora Fountain ANP [address] [place], [place] [phone] Health Maintenance Due Date Last Done Comments CT Colonography 1965 FIT DNA/Cologuard 1965 FIT 1965 FOBT 1965 Sigmoidoscopy 1965 Disability Screening 1965 Hepatitis C Screening 09/14/1981 RSV Patients and Patients Aged 60 years or older (1 - Risk 50-74 years 1-dose series) 09/14/2013 Pneumococcal Vaccine: 50+ Years (2 of 2 - PCV) 10/03/2020 10/04/2019 COVID-19 Vaccine ( season) 2024 03/12/2024, 05/26/2022, 03/12/2021, Additional history exists Influenza Vaccine (#1) 2024 , 11/24/2021, 01/25/2021, Additional history exists SDOH Screening 03/01/2025 03/01/2024 Alcohol/Substance Use Screening 03/12/2025 03/12/2024 Depression Screening 03/12/2025 03/12/2024, 03/12/19 25 Mammogram 10/17/2025 10/17/2024, 06/27, 07/10/2023, Additional history exists Tobacco Screening 01/17/2026 01/17/2025 Colonoscopy 08/12/2027 08/11/2017 Colorectal Cancer Screening 08/12/2027 Cervical Cancer Screening 06/20/2028 HPV/Cotest 06/20/2028 06/21/2023, 04/29, 05/24/2017 Pap Smear 06/20/2028 06/21/2023, 05/27/2020 DTaP/Tdap/Td Vaccines (2 - Td or Tdap) 10/03/2029 10/04/2019 Zoster Vaccines Completed 08/25/2020, 02/20/2020 HIV Screening Completed 07/22/2021 HIB Vaccines Aged Out No longer eligi [...] Priority Date/Time Associated Diagnosis Comments BI MAMMOGRAM SCREENING TOMOSYNTHESIS BILATERAL Routine 10/17/2024 10:50 AM EDT HPV MRNA E6/E7 REFLEX TO HPV 16, 18/45 Routine 06/21/2023 9:09 AM EDT PAP SMEAR Routine 06/21/2023 9:09 AM EDT Cervical cancer screening HIV 1/2 ANTIGEN/ANTIBODY, FOURTH GENERATION W/RFL Routine 07/22/2021 8:04 AM EDT HM COLONOSCOPY Routine 08/11/2017 from Last 3 Months or Most Recently Relevant to Health Maintenance Results * BI Mammogram Screening Tomosynthesis Bilateral (10/17/2024 10:50 AM EDT) Anatomical Region Laterality Modality Breast Bilateral Mammography 10/17/2024 10:5 0 AM EDT Narrative 10/21/2024 3:33 PM EDT [facility] [address] [place], [place] [address] Mammography Report Signed Patient: Chad Leger MR#: [id number] 8 : 1965 Acct:[id number] Age/Sex: 59 / F ADM Date: 10/17/24 Loc: HO.MAMMO Attending Dr: Dora Fountain NP Ordering Physician: DORA FOUNTAIN NP Results: 1Negative Date of Service: 10/17/24 Follow Up: 1 Year From Orig inal Mammogram Procedure(s): MM tomosynthesis screening BI Accession Number(s): [id number] cc: DORA FOUNTAIN NP EXAMINATION: MM SCREENING DIGITAL BREAST TOMOSYNTHESIS, BILATERAL CLINICAL INFORMATION: Screening. Asymptomatic. COMPARISON: Mammography: Comparison is made with available priors TECHNIQUE: Digital breast mammography with tomosynthesis is performed in both the craniocaudal and mediolateral oblique views along with computer-aided detection (CAD). FINDINGS: There are scattered areas of fibroglandular density (ACR BI-RADS breast composition Category b). There are no significant masses, abnormal calcifications, or other abnormalities. MM/MM tomosynthesis screening BI IMPRESSION: No mammographic evidence of malignancy. ASSESSMENT: BI-RADS BI-RADS 1 - Negative RECOMMENDATION: Routine annual mammography screening. 1 year F/U This examination should not preclude the clinical evaluation of a suspicious palpable abnormality. This patient's information was entered into a reminder system with a target due date for their next mammogram. Electronically signed by: Malka Hernandez DO 10/21/2024 03:30 PM EDT RP Dictated By: Malka Hernandez DO Signed By: <Electronically signed by Malka Hernandez DO in OV> 10/21/24 1530 DD/ 1050 TD/TT: 10/17/24 1105 Rigging Up Worker: Procedure Note Donotuseinterpreter, Image - 10/21/2024 [facility] [address] [place] [address] Mammography Report Signed Patient: Chad LegerMR#: [id number] 8 : 1965Acct:[id number] Age/Sex: 59 / FADM Date: 10/17/24 Loc: RO Attending Dr: Dora Fountain NP Ordering Physician: DORA FOUNTAIN NPResults: 1Negative Date of Service: 10/17/24Follow Up: 1 Year From Orig inal Mammogram Procedure(s): MM tomosynthesis screening BI Accession Number(s): [id number] cc: DORA FOUNTAIN NP EXAMINATION: MM SCREENING DIGITAL BREAST TOMOSYNTHESIS, BILATERAL CLINICAL INFORMATION: Screening. Asymptomatic. COMPARISON: Mammography: Comparison is made with available priors TECHNIQUE: Digital breast mammography with tomosynthesis is performed in both the craniocaudal and mediolateral oblique views along with computer-aided detection (CAD). FINDINGS: There are scattered areas of fibroglandular density (ACR BI-RADS breast composition Category b). There are no significant masses, abnormal calcifications, or other abnormalities. MM/MM tomosynthesis screening BI IMPRESSION: No mammographic evidence of malignancy. ASSESSMENT: BI-RADS BI-RADS 1 - Negative RECOMMENDATION: Routine annual mammography screening. 1 year F/U This examination should not preclude the clinical evaluation of a suspicious palpable abnormality. This patient's information was entered into a reminder system with a target due date for their next mammogram. Electronically signed by: Malka Hernandez DO 10/21/2024 03:30 PM EDT Dictated By: Malka Hernandez DO Signed By: <Electronically signed by Malka Hernandez DO in OV> 10/21/24 1530 DD/ 1050 TD/TT: 10/17/24 1105 Rigging Up Worker: Dora THOMAS G BI PROCEDURES Final Result * HPV mRNA E6/E7 w/Reflex to HPV Genotypes 16, 18/45 (06/21/2023 9:09 AM EDT) HPV nRNA E6/E7 Not Detected Not Detected [facility] Comment:Methodology: Transcr iption-Mediated AmplificationThis assay detects E6/E7 viral messenger RNA (mRNA) from 14high-risk HPV types (16,18,31,33,35,39,45,51,52,56,58,59,66,68).Cervical sources are required for HPV testing.If a vaginal source from a patient who has had atotal hysterectomy with removal of cervix wassubmitted, please contact the testing laboratoryfor alternative testing options.For additional information, please refer tohttp://education.[employer]/faq/ODO287k7(This link if provided for information/educational purposes only.)THIS TEST WAS PERFORMED AT:[facility] [place] [phone] ROMERO MD HPV mRNA E6/E7 TNP [facility] HPV 16 RNA TNP [facility] HPV 18/45 RNA TNP [facility] 06/21/2023 9:09 AM EDT 06/23/2023 7:30 AM EDT Joon Sierra CNM LAB CYTOLOGY ORDERABLES F inal Result [facility] [address] [place] [address] [phone] * Pap Smear (06/21/2023 9:09 AM EDT) Swab Cervix uteri structure / Unknown 06/21/2023 9:09 AM EDT 06/23/2023 7:30 AM EDT Narrative [facility] - 07/11/2023 12:01 PM EDT ----- ------- Name: Chad Leger Age/Sex: 57/F : 1965 Unit#: [id number] Attend Dr: JOON SIERRA CNM Re06/23/23 Status: DEP REF Location: HO.LNP Disch: ----- ------- SPEC : [id number] RECD: 06/23/23 STATUS: [place] NUM: [id number] BRENT: 06/21/[address] [facility] [address]: JOON SIERRA CNM ENTERED: 06/23/23 SP TYPE: Pap Smr OTHR DR: ORDERED: Pap Smear Interpretation Satisfactory for evaluation. Atrophic. Negative for intraepithelial lesion or malignancy. HPV mRNA E6/E7: NOT DETECTED This assay detects E6/E7 viral messenger RNA (mRNA) from 14 high-risk HPV types (16, 18, 31, 33, 35, 39, 45, 51, 52, 56, 58, 59, 66, 68) HPV testing performed by [facility], [place], [place]. See reference laboratory portion of the EMR for entire report. Clinical Information LMP: Postmenopausal Previous PAP test: Unknown date, Abnormal Other history: NIL/HPV neg preceded by ASCUS Material Received ThinPrep-Vaginal/Cervical ----- ------- Signed (signature on file) Ai Urbano MD 07/11/23 1201 ----- ------- END OF REPORT Joon Sierra CNM LAB CYTOLOGY ORDERABLES F inal Result [facility] [address] [place] [address] [phone] * HIV 1/2 ANTIGEN/ANTIBODY,FOURTH GENERATION W/RFL (07/22/2021 8:04 AM EDT) HIV-1/2 ANTIGEN AND ANTIBODIES, 4TH GENERATION W/ REFLEX NON-REACT LOR NON-REACT LOR [facility] Comment: HIV-1 antigen and [...] purpose. For additional information please refer to http://education.[employer]/faq/FIZ065 (This link is being provided for informational/ educational purposes only.) The performance of this assay has not been clinically validated in patients less than 2 years old. 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
--- OUTSIDE RECORDS SUMMARY | 2025-01-17 14:01 | XMS_ITS | Encounter Summary ---
Author Organization [employer] Address [address] [facility] [address] [place] [address] Care Team Providers Care Vehicle Care Specialist Name Role Phone Radha Leiva WILLIAM Primary Care Provider [phone] Encounter Details Date Type Department Care Team (Latest Contact Info) Description 01/17/2025 Travel Social History Tobacco Use Types Packs/Day [...] as of this encounter Plan of Treatment Upcoming Encounters Date Type Department Care Team (Late st Contact Info) Description 03/14/2025 9:45 AM EST Office Visit [facility] [address] [place] [address] Radha Leiva ANP [address] [place] [address] documented as of this encounter Visit Diagnoses Not on filedocumented in this encounter Additional Health Concerns Assessment Noted Time PHQ-9 Depression Total Score: 4 03/12/19 25 2:26 PM EST documented as of this encounter Care Teams Vehicle Care Specialist Relationship Specialty Start Date End Date Radha Leiva ANP [address] [place] [phone] PCP - General Family Medicine 07/16/19 documented as of this encounter
== END 2025-01-17 13:38 | disposition home or self-care (01) ==
LOC: HO.HHCX 13:37
PROVIDERS: PCP Nurse Practitioner Primary Care
DX: M25.512 Pain in left shoulder (principal)
CPT/HCPCS: 73030